=== PATIENT | female | born 1965 | race Caucasian/White ===

== ENCOUNTER 2020-11-24 05:34 | Emergency (ER) | payer MEDICAID, SELFPAY ==
--- NOTE | 2020-11-24 | ECG_ITS ---
Test Reason : CHEST PAIN Blood Pressure : / mmHG Vent. Rate : 069 BPM Atrial Rate : 069 BPM P-R Int : 150 ms QRS Dur : 084 ms QT Int : 432 ms P-R-T Axes : 053 012 043 degrees QTc Int : 462 ms Normal sinus rhythm Prolonged QT Abnormal ECG When compared with ECG of 24-NOV-2020 06:02, Nonspecific T wave abnormality is no longer Present Referred By: Sachin Arias Electronically Signed By:BRIDGET ISLAS
--- NOTE | ~2020-11-24 | XR_ITS ---
EXAMINATION: XR CHEST CLINICAL INFORMATION: Chest pain COMPARISON: 12/28/2013 TECHNIQUE: Frontal view of the chest was obtained. FINDINGS: Cardiac leads overlie the chest. The lungs are well expanded. There is no focal consolidation, edema, or effusion. No pneumothorax. The cardiomediastinal silhouette is within normal limits. No acute osseous abnormality. XR/XR chest 1V IMPRESSION: Clear lungs.
[2020-11-24 05:42] VITALS: BP 115/68; PULSE 72; RESP 16; TEMP 36.7; O2SAT 94; BMI 35.3
--- NOTE | 2020-11-24 05:50 | ECG_ITS ---
Test Reason : CHEST PAIN Blood Pressure : / mmHG Vent. Rate : 074 BPM Atrial Rate : 074 BPM P-R Int : 152 ms QRS Dur : 090 ms QT Int : 434 ms P-R-T Axes : 055 020 070 degrees QTc Int : 481 ms Normal sinus rhythm Nonspecific T wave abnormality Abnormal ECG When compared with ECG of 12-OCT-2008 12:52, Nonspecific T wave abnormality is now Present Referred By: Generic ED Physician Electronically Signed By:BRIDGET ISLAS
[2020-11-24 06:22] LABS: MANUAL DIFF FLAG NO
[2020-11-24 06:24] LABS: Basophils Absolute Auto 0.1 X10*3/uL (0.0-0.2); Basophils Percent Auto 0.7 % (0-2); Eosinophils Absolute Auto 0.2 X10*3/uL (0.0-0.4); Hemoglobin 14.2 g/dl (12.0-16.0); Imm Gran Abs Auto 0.06 X10*3/uL (0.00-0.03); Imm Gran Pct Auto 0.6 % (0.0-0.4); Lymphocytes Absolute Auto 3.1 X10*3/uL (1.2-4.9); Lymphocytes Percent Auto 28.7 % (20-40); Mean Corpuscular HGB Conc 33.8 g/dl (31.0-35.0); Mean Corpuscular Hemoglobin 29.5 pg (27.0-33.0); Mean Corpuscular Volume 87.1 fL (80-98); Mean Platelet Volume 11.3 fL (9.4-12.3); Monocytes Absolute Auto 0.7 X10*3/uL (0.1-1.2); Monocytes Percent Auto 6.8 % (2-11); Neutrophils Absolute Auto 6.6 X10*3/uL (2.0-8.3); Neutrophils Percent Auto 61.2 % (45-73); Platelet Count 259 X10*3/uL (160-400); Red Blood Count 4.82 X10*6/uL (4.20-5.50); Red Cell Distribution Width 15.3 % (11.0-16.0); White Blood Count 10.9 X10*3/uL (4.8-10.8)
[2020-11-24 06:48] LABS: Anion Gap 15 (12-20); Blood Urea Nitrogen 17 mg/dL (9-16); Calcium 8.5 mg/dL (8.4-10.2); Carbon Dioxide 21 mmol/L (22-29); Chloride 104 mmol/L (96-108); Creatinine Clr Calc Pharmacy 79.6; Estimated Glomerular Filt Rate > 60; Glucose Random 127 mg/dL (60-115); Potassium 3.8 mmol/L (3.3-5.1); Sodium 136 mmol/L (135-145)
--- NOTE | 2020-11-24 06:52 | ED_ITS ---
HPI - Chest Pain General Chief Complaint: Chest Pain Stated Complaint: chest pressure Time Seen by Provider: 11/24/20 06:52 History of Present Illness HPI narrative: Patient with no known coronary disease with history of hypertension woke up at 04:00 from sleep with chest pressure-like symptoms radiate to the bilateral shoulder with nausea vomiting small amount with diaphoresis. Chest pain lasted for about half an hour so on arrival patient in having much chest pain almost subsided. Patient allergic to aspirin EKG done showed no acute ST elevation. High sensitive troponin was 13.3 when examined. Patient denies any shortness of breath no calf tenderness never had similar pain in the past patient had stress test remotely in the past Related Data Allergies Allergy/AdvReac Type Severity Reaction Status Date / Time cefepime [CEFEPIME] Allergy Mild RASH Unverified 12/23/19 16:43 aspirin [ASPIRIN] Allergy Unknown HIVES Unverified 12/23/19 16:43 Review of Systems Review of Systems: Constitutional : No Weight loss, No Fever, No Chills ENT/Mouth : No sore throat, No Rhinorrhea Eyes: No Eye Pain, No Swelling Cardiovascular : + Chest Pain, no palpitations Respiratory : No Cough, No Sputum, no shortness of breath Gastrointestinal : + Nausea, + Vomiting, No Diarrhea, No abdominal Pain, no black stools Genitourinary : No Dysuria, No Urinary Frequency Musculoskeletal : No joint pain, No Myalgias, No Joint Swelling Skin : No Skin Lesions, No rash Neuro : No Weakness, No Numbness, No Dizziness, No Headache Psych : No Anxiety/Panic, No Depression Heme/Lymph: No Bruising, No Lymphadenopathy Endocrine : No Polyuria, No Polydipsia All other systems reviewed and are negative [facility] Past Medical History Medical History Hypertension Social History Social History Patient Tobacco Use Status: Current everyday Tobacco user Use of substances other than those prescribed or required for medical reasons: No Advance Directives: No Advance Directives Information Provided: No Patient : No Physical Exam Vital Signs: Vital Signs: Last Vital Signs Temp 98.5 F 11/24/20 12:32 Pulse 61 11/24/20 12:32 Resp 17 11/24/20 12:32 BP 128/78 11/24/20 12:32 Pulse Ox 96 11/24/20 12:32 Body Mass Index 35.3 Appearance: Alert. Oriented X3. No acute distress. Eyes: No pallor /icterus ENT: Pharynx normal. Oral Mucosa moist Neck: Normal inspection. Neck supple. CVS: Normal heart rate and rhythm. Pulses normal. Respiratory: No respiratory distress. Equal air entry bilateral, no wheezing/rales/rhonchi Abdomen: Soft and nontender. Bowel sounds are present, no mass palpable, no CVA tenderness Skin: Skin warm and dry. Normal skin color. Normal skin turgor. Extremities: No lower extremity edema. No calf tenderness Neuro: Oriented X 3. No motor deficit. Course Course Course Narrative: Patient has stable vitals on heparin drip denies any chest pain awaiting for transfer to [facility] for cardiac catheterization. Repeat troponin Was further elevated to 71.2.. Patient sign of Dr. Amaya pending transfer to [facility] MDM - Chest Pain MDM Narrative Medical decision making narrative: Patient with typical cardiac chest pain symptoms lasted for 45 minutes without any acute ST elevation initial high sensitive troponin was 13.3 repeat in 2 hours 47.4 repeat EKG also without any significant change. Patient's symptoms clinically cardiac allergic to aspirin with hives and swelling of the lips was given 300 mg of Plavix p.o. started on heparin drip seen by manager credit collections Dr. Campos planning to transfer to [facility] for possible angio. No chest pain after arrival in the ER. Lab Data Attestation: I reviewed the patient's lab results. Result diagrams: 11/24/20 06:12 11/24/20 06:12 Labs: Lab Results 11/24/20 11/24/20 11/24/20 Range/Units 06:12 06:12 06:12 WBC 10.9 H (4.8-10.8) X10*3/uL RBC 4.82 (4.20-5.50) X10*6/uL Hgb 14.2 (12.0-16.0) g/dl Hct 42.0 (37-47) % MCV 87.1 (80-98) fL MCH 29.5 (27.0-33.0) pg MCHC 33.8 (31.0-35.0) g/dl RDW 15.3 (11.0-16.0) % Plt Count 259 (160-400) X10*3/uL MPV 11.3 (9.4-12.3) fL Immature Gran % (Auto) 0.6 H (0.0-0.4) % Neut % (Auto) 61.2 (45-73) % Lymph % (Auto) 28.7 (20-40) % [place] % (Auto) 6.8 (2-11) % Eos % (Auto) 2.0 (0-4) % Baso % (Auto) 0.7 (0-2) % Lymph # (Auto) 3.1 (1.2-4.9) X10*3/uL [place] # (Auto) 0.7 (0.1-1.2) X10*3/uL Eos # (Auto) 0.2 (0.0-0.4) X10*3/uL Baso # (Auto) 0.1 (0.0-0.2) X10*3/uL Abs Immat Gran (auto) 0.06 H (0.00-0.03) X10*3/uL Absolute Neuts (auto) 6.6 (2.0-8.3) X10*3/uL Absolute Nucleated RBC 0.000 (0.0-0.012) X10*3/uL Nucleated RBC % (auto) 0.0 (0.0-0.2) /100WBC PT INR APTT (24.1-38.0) SEC Sodium 136 (135-145) mmol/L Potassium 3.8 (3.3-5.1) mmol/L Chloride 104 (96-108) mmol/L Carbon Dioxide 21 L (22-29) mmol/L Anion Gap 15 (12-20) BUN 17 H (9-16) mg/dL Creatinine 0.96 (0.5-1.4) mg/dL Estim Creat Clear Calc 79.6 Estimated GFR > 60 Random Glucose 127 H (60-115) mg/dL Calcium 8.5 (8.4-10.2) mg/dL Troponin I High Sens 13.3 (<3.5-17.0) ng/L COVID-19 ([facility]ACE) (Negative) COVID-19 Clin Com 11/24/20 11/24/20 11/24/20 Range/Units 08:05 09:49 09:49 WBC (4.8-10.8) X10*3/uL RBC (4.20-5.50) X10*6/uL Hgb (12.0-16.0) g/dl Hct (37-47) % MCV (80-98) fL MCH (27.0-33.0) pg MCHC (31.0-35.0) g/dl RDW (11.0-16.0) % Plt Count (160-400) X10*3/uL MPV (9.4-12.3) fL Immature Gran % (Auto) (0.0-0.4) % Neut % (Auto) (45-73) % Lymph % (Auto) (20-40) % [place] % (Auto) (2-11) % Eos % (Auto) (0-4) % Baso % (Auto) (0-2) % Lymph # (Auto) (1.2-4.9) X10*3/uL [place] # (Auto) (0.1-1.2) X10*3/uL Eos # (Auto) (0.0-0.4) X10*3/uL Baso # (Auto) (0.0-0.2) X10*3/uL Abs Immat Gran (auto) (0.00-0.03) X10*3/uL Absolute Neuts (auto) (2.0-8.3) X10*3/uL Absolute Nucleated RBC (0.0-0.012) X10*3/uL Nucleated RBC % (auto) (0.0-0.2) /100WBC PT Cancelled 11.0 INR Cancelled 1.0 APTT 31.6 (24.1-38.0) SEC Sodium (135-145) mmol/L Potassium (3.3-5.1) mmol/L Chloride (96-108) mmol/L Carbon Dioxide (22-29) mmol/L Anion Gap (12-20) BUN (9-16) mg/dL Creatinine (0.5-1.4) mg/dL Estim Creat Clear Calc Estimated GFR Random Glucose (60-115) mg/dL Calcium (8.4-10.2) mg/dL Troponin I High Sens 47.4 H* D (<3.5-17.0) ng/L COVID-19 (K[facility]ACE) (Negative) COVID-19 Clin Com 11/24/20 11/24/20 11/24/20 Range/Units 10:15 13:25 13:25 WBC (4.8-10.8) X10*3/uL RBC (4.20-5.50) X10*6/uL Hgb (12.0-16.0) g/dl Hct (37-47) % MCV (80-98) fL MCH (27.0-33.0) pg MCHC (31.0-35.0) g/dl RDW (11.0-16.0) % Plt Count (160-400) X10*3/uL MPV (9.4-12.3) fL Immature Gran % (Auto) (0.0-0.4) % Neut % (Auto) (45-73) % Lymph % (Auto) (20-40) % [place] % (Auto) (2-11) % Eos % (Auto) (0-4) % Baso % (Auto) (0-2) % Lymph # (Auto) (1.2-4.9) X10*3/uL [place] # (Auto) (0.1-1.2) X10*3/uL Eos # (Auto) (0.0-0.4) X10*3/uL Baso # (Auto) (0.0-0.2) X10*3/uL Abs Immat Gran (auto) (0.00-0.03) X10*3/uL Absolute Neuts (auto) (2.0-8.3) X10*3/uL Absolute Nucleated RBC (0.0-0.012) X10*3/uL Nucleated RBC % (auto) (0.0-0.2) /100WBC PT INR APTT 140.7 H* D (24.1-38.0) SEC Sodium (135-145) mmol/L Potassium (3.3-5.1) mmol/L Chloride (96-108) mmol/L Carbon Dioxide (22-29) mmol/L Anion Gap (12-20) BUN (9-16) mg/dL Creatinine (0.5-1.4) mg/dL Estim Creat Clear Calc Estimated GFR Random Glucose (60-115) mg/dL Calcium (8.4-10.2) mg/dL Troponin I High Sens 71.2 H* D (<3.5-17.0) ng/L COVID-19 (KANDACE) Negative (Negative) COVID-19 Clin Com See Note ECG Data ECG #1: Attestation: I personally reviewed and interpreted this ECG as follows: Interpretation: Normal sinus rhythm 74 beats per minute normal intervals normal axis no acute ST wave changes T inversion in inferior lateral leads nonspecific Critical Care Time Critical Care Time Critical Care Time: Yes Total Critical Care Time: 45 Attestation: I spent 45 minutes of critical care, with interventions, assessments, speaking to patient and consultants Discharge Plan Discharge Clinical Impression: Acute non-ST elevation myocardial infarction (NSTEMI)
[2020-11-24 06:53] LABS: Troponin-I High Sensitivity 13.3 ng/L (<3.5-17.0)
[2020-11-24] MEDS: Nitroglycerin 2 % Oint 1 GM Packet 0.5 INCH TRANSDERMA (08:00)
[2020-11-24] MEDS: Clopidogrel Bisulfate 300 MG TABLET PO (08:00)
[2020-11-24 08:09] VITALS: BP 133/82; PULSE 70; RESP 18; O2SAT 98
--- NOTE | 2020-11-24 08:15 | PC.NURSE ---
Pt alert and oriented x3, b/p 133/82, HR 70. no c/o chest pain, no sob/difficulty breathing, no headache/dizziness, no numbness/tingling. Pt up to restroom without difficulty. Pt's Troponin at [address] Arias aware. Repeat Troponin result pending. Pt resting quietly.
[2020-11-24 09:03] LABS: Troponin-I High Sensitivity 47.4 ng/L (<3.5-17.0)
--- NOTE | 2020-11-24 09:46 | PM.CNCAR ---
History of Present Illness History of Present Illness Date of Service: 11/24/20 Requesting physician: Sachin Arias Chief complaint: chest pressure Narrative: I was requested to see Pili in cardiology consultation today for acute coronary syndrome. Patient is a pleasant 55-year-old woman with prior history of hypertension woke up this morning around 04:00 with severe retrosternal chest pressure radiating to both her shoulders associated with nausea and cold sweats. She said this is the worst pain she had ever had. She also felt like she had to have a bowel movement and went to the toilet. Symptoms continued to persist and then her called her daughter will call 911. By the time 911 arrived at her home she has her pain was easing up. IV was placed and she was brought to the emergency room. In the emergency room initial EKG was non remarkable, subsequent EKG shows nonspecific anterior ST T wave changes. Her initial troponin was 30 and subsequently increased to 44 consistent with a good delta. Patient has no current chest pain. Has remained hemodynamically stable. She has never had symptoms like this before. She has prior history of hypertension and maybe border hyperlipidemia. Her blood pressure recently has not been well controlled with the change in medications as per her. Review of Systems Constitutional: Constitutional: Reports no additional constitutional complaints Eyes: Eyes: Reports no additional eye complaints ENT: Reports system reviewed and no additional complaints, except as documented Cardiovascular: Cardiovascular: Reports chest pain at rest, Reports diaphoresis, Denies lightheadedness, Denies Loss of Consciousness and Denies dyspnea Respiratory: Respiratory: Reports no additional respiratory complaints and Denies dyspnea Gastrointestinal: Gastrointestinal: Reports nausea Genitourinary: Genitourinary: Reports no additional female genitourinary complaints Musculoskeletal: Musculoskeletal: Reports no additional musculoskeletal complaints Integumentary/Breasts: Skin/Breast: Reports system reviewed and no additional complaints, except as docu Neurologic: Reports system reviewed and no additional complaints, except as documented Psychiatric: Psychiatric: Reports no additional psychiatric complaints Endocrine: Endocrine: Reports no additional endocrine complaints Hematologic/Lymphatic: Hematologic/Lymphatic: Reports no additional hematologic/lymphatic complaints Allergic/Immunologic: Allergic/Immunologic: Reports no additional allergic/immunologic complaints [facility] Past Medical History Medical History Hypertension Social History Social History Advance Directives: No Advance Directives Information Provided: No Patient : No Meds Allergies Allergy/AdvReac Type Severity Reaction Status Date / Time cefepime [CEFEPIME] Allergy Mild RASH Unverified 12/23/19 16:43 aspirin [ASPIRIN] Allergy Unknown HIVES Unverified 12/23/19 16:43 Active Medications: Current Medications Generic Name Dose Route Start Last Admin Trade Name Freq PRN Reason Stop Dose Admin Heparin Sodium/Sodium Chloride 25,000 unit in 250 mls @ 0 mls/hr 11/24/20 09:15 IVCONT .Q0M COUNTS INCLUDE 234 BEDS AT THE [facility] Protocol Per Protocol Physical Exam Vital Signs: Vital Signs: Last Vital Signs Temp 98.0 F 11/24/20 05:42 Pulse 70 11/24/20 08:09 Resp 18 11/24/20 08:09 BP 133/82 11/24/20 08:09 Pulse Ox 98 11/24/20 08:09 Body Mass Index 35.3 Const: General: cooperative, comfortable, no acute distress, alert and awake Nutritional Appearance: obese Orientation/consciousness: patient oriented x3 Limitations: no limitations HENMT: Head: Yes normocephalic and Yes atraumatic Neck: Neck: Yes trachea midline, Yes supple and Yes no JVD Carotids: no bruits Resp: Effort & Inspection: normal respiratory effort Auscultation: clear to auscultation bilaterally Cardio: Jugular venous distension: no JVD Palpation: normal PMI Rate: regular rate Rhythm: regular rhythm Heart sounds: S1 normal heart sound present, S2 normal heart sound present, no click, no gallops, no murmurs and no rubs Peripheral pulses: Peripheral pulses 2+ throughout GI: Auscultation: normal bowel sounds Skin: General skin exam: no rashes or lesions noted Neuro: General: patient oriented x3 and no focal motor deficits Extrem: General: Yes no clubbing, cyanosis or edema Psych: Appearance: grossly normal Results Labs and Meds Result diagrams: 11/24/20 06:12 11/24/20 06:12 Lab results: Laboratory Results - last 24 hr 11/24/20 11/24/20 11/24/20 06:12 06:12 06:12 WBC 10.9 H RBC 4.82 Hgb 14.2 Hct 42.0 MCV 87.1 MCH 29.5 MCHC 33.8 RDW 15.3 Plt Count 259 MPV 11.3 Immature Gran % (Auto) 0.6 H Neut % (Auto) 61.2 Lymph % (Auto) 28.7 [place] % (Auto) 6.8 Eos % (Auto) 2.0 Baso % (Auto) 0.7 Lymph # (Auto) 3.1 [place] # (Auto) 0.7 Eos # (Auto) 0.2 Baso # (Auto) 0.1 Abs Immat Gran (auto) 0.06 H Absolute Neuts (auto) 6.6 Absolute Nucleated RBC 0.000 Nucleated RBC % (auto) 0.0 Sodium 136 Potassium 3.8 Chloride 104 Carbon Dioxide 21 L Anion Gap 15 BUN 17 H Creatinine 0.96 Estim Creat Clear Calc 79.6 Estimated GFR > 60 Random Glucose 127 H Calcium 8.5 Troponin I High Sens 13.3 11/24/20 08:05 WBC RBC Hgb Hct MCV MCH MCHC RDW Plt Count MPV Immature Gran % (Auto) Neut % (Auto) Lymph % (Auto) [place] % (Auto) Eos % (Auto) Baso % (Auto) Lymph # (Auto) [place] # (Auto) Eos # (Auto) Baso # (Auto) Abs Immat Gran (auto) Absolute Neuts (auto) Absolute Nucleated RBC Nucleated RBC % (auto) Sodium Potassium Chloride Carbon Dioxide Anion Gap BUN Creatinine Estim Creat Clear Calc Estimated GFR Random Glucose Calcium Troponin I High Sens 47.4 H* D EKG 1. Shows normal sinus rhythm with minimal T-wave flattening. EKG 2. Shows nonspecific anterior T-wave changes Imaging Radiologist's impression: Impressions Chest X-Ray 11/24/20 05:50 IMPRESSION: Clear lungs. Assessment and Plan (1) Acute coronary syndrome: Status: Acute Patient present with typical symptoms of acute coronary syndrome associated EKG changes as well as positive are troponin delta consistent with high risk acute coronary syndrome with risk factors of hypertension, obesity and family history. Patient has aspirin allergy and was appropriately loaded with Plavix 300 mg P will continue Plavix 75 mg daily. Start on IV heparin for acute coronary syndrome. Start on Lopressor 25 mg q.12 hours and statins Lipitor 80 mg daily. Patient has severe aspirin allergy with hives and facial swelling. Requires cardiac catheterization and prior to that should require aspirin desensitization protocol. This will be performed at [facility] in the CCU prior to cardiac catheterization. Discussed case with Dr. Gonzalez and will plan desensitization protocol. Patient will be transferred to telemetry floor at [facility]. Management was discussed with patient. Risks, benefits, alternate 2nd open to cardiac catheterization were discussed with her. She is agreeable. Will follow with the patient as outpatient Procedures Date of Service Date of Service: 11/24/20
[2020-11-24] MEDS: Heparin Sodium,Porcine 5,000 UNIT/ML VIAL 5000 UNIT IVPUSH (09:51)
[2020-11-24] MEDS: Heparin Sodium,Porcine/1/2NS 25,000 UNIT/250 ML IV.SOLN 13.91 UNIT IVCONT (10:06)
[2020-11-24 10:23] LABS: Partial Thromboplastin Time 31.6 SEC (24.1-38.0)
[2020-11-24 10:28] VITALS: BP 134/76; PULSE 65
[2020-11-24] MEDS: Metoprolol Tartrate 25 MG TABLET PO (10:28)
[2020-11-24] MEDS: Atorvastatin Calcium 80 MG TABLET PO (10:30)
[2020-11-24 10:34] VITALS: BP 134/76; PULSE 63; RESP 12; O2SAT 98
[2020-11-24 10:52] LABS: COVID-19 Test Negative (Negative); IDNOW Serial# 08D9AD1C
[2020-11-24 12:32] VITALS: BP 128/78; PULSE 61; RESP 17; TEMP 36.9; O2SAT 96
[2020-11-24 14:00] LABS: Troponin-I High Sensitivity 71.2 ng/L (<3.5-17.0)
[2020-11-24 14:02] LABS: Partial Thromboplastin Time 140.7 SEC (24.1-38.0)
--- NOTE | 2020-11-24 17:04 | PC.NURSE ---
pt accepted [facility] m5 bed 127 nurse - nurse [phone]
[2020-11-24 17:05] LABS: Partial Thromboplastin Time 151.6 SEC (24.1-38.0)
== END 2020-11-24 17:30 ==
PROVIDERS: Emergency Provider Internal Medicine; PCP Family Medicine
DX: I21.4 Non-ST elevation (NSTEMI) myocardial infarction (principal); R07.89 Other chest pain; I10 Essential (primary) hypertension; Z20.822 Contact with and (suspected) exposure to COVID-19; R11.2 Nausea with vomiting, unspecified; F17.210 Nicotine dependence, cigarettes, uncomplicated
CPT/HCPCS: 36415; 71045; 80048; 84484; 85025; 85610; 85730; 87635; 93005; 96365; 96366; 96375; 99284; 99291

== ENCOUNTER → 2020-12-13 14:33 | Outpatient (BNVA) | payer MEDICAID, SELFPAY | PROVIDERS: PCP Family Medicine; Referring Provider Internal Medicine; Visit Provider Nurse Practitioner Family | DX: I24.9 Acute ischemic heart disease, unspecified (principal); I25.10 Atherosclerotic heart disease of native coronary artery without angina pectoris; I10 Essential (primary) hypertension; E78.5 Hyperlipidemia, unspecified; R77.8 Other specified abnormalities of plasma proteins; R53.83 Other fatigue; F41.9 Anxiety disorder, unspecified; Z98.890 Other specified postprocedural states; Z72.0 Tobacco use; Z88.6 Allergy status to analgesic agent; Z88.1 Allergy status to other antibiotic agents; Z79.899 Other long term (current) drug therapy | CPT/HCPCS: 99212 ==

== ENCOUNTER 2021-01-23 10:51 | Outpatient (REF) | payer MEDICAID, SELFPAY ==
--- NOTE | ~2021-01-23 | MM_ITS ---
EXAMINATION: MM SCREENING DIGITAL BREAST TOMOSYNTHESIS, BILATERAL CLINICAL INFORMATION: Screening. Asymptomatic. The lifetime risk of breast cancer based on the Tyrer-Cuzick Model is 15%. COMPARISON: Mammography: 03/29/2011 TECHNIQUE: Digital breast tomosynthesis is performed in both the craniocaudal and mediolateral oblique views along with computer-aided detection (CAD). Synthesized 2D images are generated from the tomosynthesis. Additional bilateral MLO views are provided. FINDINGS: There are scattered areas of fibroglandular density (ACR BI-RADS breast composition Category b). There are no significant masses, abnormal calcifications, or other abnormalities. There are benign scattered round and rim and some dermal calcifications. The axilla and skin contours are unremarkable. No significant changes. MM/MM tomosynthesis screening BI IMPRESSION: No mammographic evidence of malignancy. ASSESSMENT: BI-RADS 2: Benign RECOMMENDATION: Routine annual mammography screening. This patient's information was entered into a reminder system with a target due date for their next mammogram.
== END 2021-01-23 10:52 | disposition home or self-care (01) ==
LOC: HO.MAMMO 10:51
PROVIDERS: Visit Provider Family Medicine
DX: Z12.31 Encounter for screening mammogram for malignant neoplasm of breast (principal)
CPT/HCPCS: 77063; 77067

== ENCOUNTER → 2021-02-09 12:57 | Outpatient (BNVA) | payer MEDICAID, SELFPAY | PROVIDERS: PCP Internal Medicine; Referring Provider Family Medicine; Visit Provider Nurse Practitioner | DX: Z83.71 Family history of colonic polyps (principal) | CPT/HCPCS: 99212 ==

== ENCOUNTER 2021-02-28 11:00 | Outpatient (RCR) | payer MEDICAID, SELFPAY ==
[2021-02-07 10:58] VITALS: BP 145/79; PULSE 63
== END 2021-03-13 16:52 | disposition home or self-care (01) ==
LOC: HO.PT 11:00
PROVIDERS: PCP Internal Medicine; Visit Provider Family Medicine
DX: M53.3 Sacrococcygeal disorders, not elsewhere classified (principal)
CPT/HCPCS: 97110; 97162

== ENCOUNTER → 2021-03-20 12:44 | Outpatient (BNVA) | payer MEDICAID, SELFPAY | PROVIDERS: PCP Internal Medicine; Referring Provider Internal Medicine; Visit Provider Nurse Practitioner Family | DX: I25.10 Atherosclerotic heart disease of native coronary artery without angina pectoris (principal); I10 Essential (primary) hypertension; E78.5 Hyperlipidemia, unspecified; Z98.890 Other specified postprocedural states | CPT/HCPCS: 93005; 99212 ==

== ENCOUNTER → 2021-09-12 09:44 | Outpatient (BNVA) | payer MEDICAID, SELFPAY | PROVIDERS: PCP Internal Medicine; Referring Provider Internal Medicine; Visit Provider Internal Medicine Cardiovascular Disease | DX: I25.10 Atherosclerotic heart disease of native coronary artery without angina pectoris (principal); I10 Essential (primary) hypertension; K21.9 Gastro-esophageal reflux disease without esophagitis; Z79.82 Long term (current) use of aspirin; Z79.899 Other long term (current) drug therapy | CPT/HCPCS: 99212 ==

== ENCOUNTER → 2022-03-14 10:10 | Outpatient (BNVA) | payer MEDICAID, SELFPAY | PROVIDERS: PCP Internal Medicine; Referring Provider Internal Medicine; Visit Provider Internal Medicine Cardiovascular Disease | DX: I25.10 Atherosclerotic heart disease of native coronary artery without angina pectoris (principal); I10 Essential (primary) hypertension; E78.5 Hyperlipidemia, unspecified; F17.210 Nicotine dependence, cigarettes, uncomplicated; Z98.890 Other specified postprocedural states; Z79.899 Other long term (current) drug therapy | CPT/HCPCS: 93005; 99212 ==

== ENCOUNTER 2022-06-11 08:27 | Outpatient (REF) | payer MEDICAID, SELFPAY ==
--- NOTE | ~2022-06-11 | MM_ITS ---
EXAMINATION: MM SCREENING DIGITAL BREAST TOMOSYNTHESIS, BILATERAL CLINICAL INFORMATION: Screening. Asymptomatic. The lifetime risk of breast cancer based on the Tyrer-Cuzick Model is 8%. COMPARISON: Mammography: 01/23/2021, 03/29/2011 TECHNIQUE: Digital breast tomosynthesis is performed in both the craniocaudal and mediolateral oblique views along with computer-aided detection (CAD). Synthesized 2D images are generated from the tomosynthesis. Additional left MLO view is provided. FINDINGS: There are scattered areas of fibroglandular density (ACR BI-RADS breast composition Category b). There are no significant masses, abnormal calcifications, or other abnormalities. Breast tissue composition borders on predominantly fatty. Background stromal and fibroglandular densities are similar to prior studies. No developing density or architectural abnormality. There are scattered bilateral benign round, rim, and dermal calcifications again seen. Small dermal lesion again noted overlying the posterior outer left breast and posterior central right breast. No significant changes. MM/MM tomosynthesis screening BI IMPRESSION: No mammographic evidence of malignancy. ASSESSMENT: BI-RADS 2: Benign RECOMMENDATION: Routine annual mammography screening. This patient's information was entered into a reminder system with a target due date for their next mammogram.
== END 2022-06-11 08:28 | disposition home or self-care (01) ==
LOC: HO.MAMMO 08:27
PROVIDERS: PCP Family Medicine; Visit Provider Family Medicine
DX: Z12.31 Encounter for screening mammogram for malignant neoplasm of breast (principal)
CPT/HCPCS: 77063; 77067

== ENCOUNTER 2022-08-30 10:15 | Outpatient (REF) | payer MEDICAID, SELFPAY ==
--- NOTE | ~2022-08-30 | US_ITS ---
EXAMINATION: US ABDOMEN COMPLETE CLINICAL INFORMATION: Right upper quadrant pain. COMPARISON: CT abdomen and pelvis 06/13/2014. TECHNIQUE: Real-time imaging of the abdominal viscera. FINDINGS: PANCREAS: Normal. ABDOMINAL AORTA: The proximal, mid, and distal segments are normal in caliber. INFERIOR VENA CAVA: Visualized portions are normal. LIVER: There is a longitudinal span of 19.0 cm The liver contour is normal. There is diffuse increased liver parenchymal echogenicity, with pericholecystic sparing. Within the left hepatic lobe, a 5 mm benign, simple cyst is seen, with increased through sound transmission. This requires no imaging follow-up. There is no intrahepatic biliary duct dilatation seen. GALLBLADDER: Normal. The gallbladder is physiologically distended without evidence of stones, sludge, polyps, wall thickening or pericholecystic fluid. COMMON BILE DUCT: Normal in caliber measuring 0.3 cm in diameter. RIGHT KIDNEY: Normal. No hydronephrosis. No renal calculi or focal parenchymal lesions. The kidney measures 11.4 cm in maximum dimension. LEFT KIDNEY: A 1.5 cm benign, simple left parapelvic cyst is seen. This requires no imaging follow-up. No hydronephrosis or renal calculi. The kidney measures 10.0 cm in maximum dimension. SPLEEN: Normal. The spleen measures 8.9 cm in maximum dimension. FREE FLUID: None. US/US abdomen complete IMPRESSION: 1. There is mild hepatomegaly. 2. There is generalized increase in hepatic echotexture, consistent with fatty infiltration or hepatocellular disease. Please correlate clinically. No focal hepatic mass or intrahepatic biliary dilatation is seen. 3. Simple, benign hepatic and left renal cysts are noted, for which no imaging follow-up is recommended.
== END 2022-08-30 10:16 | disposition home or self-care (01) ==
LOC: HO.US 10:15
PROVIDERS: PCP Family Medicine; Visit Provider Family Medicine
DX: R10.11 Right upper quadrant pain (principal)
CPT/HCPCS: 76700

== ENCOUNTER 2023-03-05 09:55 | Outpatient (REF) | payer MEDICAID, SELFPAY | END 2023-03-05 09:56 | disposition home or self-care (01) | LOC: HO.LNP 09:55 | PROVIDERS: PCP Family Medicine; Visit Provider Obstetrics & Gynecology | DX: N90.89 Other specified noninflammatory disorders of vulva and perineum (principal) | CPT/HCPCS: 56605; 88305; 88312 ==

== ENCOUNTER 2023-03-05 09:55 | Outpatient (AMB) | payer MEDICAID, SELFPAY ==
[2023-03-05 10:00] VITALS: BP 136/86; BMI 36.5
--- NOTE | 2023-03-05 10:00 | A.OFFVIS_ITS ---
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 The patient had the vulvar growth in January of 2015 which was excited pathology showed benign fibroepithelial lesion with no evidence of malignancy. Since then it has recurred and has been growing steadily. No other concerns. [facility] Medical History Coronary artery disease Hypertension Surgical History Hx of tubal ligation S/P cardiac cath History of cardiac cath History of colonoscopy History of eyelid surgery History of cataract surgery History of 2 sections Family History Father Prostate cancer Mother No problems noted. Paternal Aunt Breast cancer Family/Other Breast cancer Social History Alcohol intake: never Patient Tobacco Use Status: Current everyday Tobacco user Cigarettes Per Day: 4 Years Smoked: 30 +/- Patient : No Female Reproductive History Menstrual Age of Menarche: 14 control method: permanent sterilization Total pregnancies: 5 Full term: 2 Number of Living Children: 2 Ab spontaneous: 3 Date of last pap smear: 01/02/15 (negative) Date of Mammogram: 06/11/22 Review of Systems Const All systems reviewed & are unremarkable except as noted in HPI and below Physical Exam Vital Signs: Last Vital Signs BP 136/86 03/05/23 10:00 BMI result Body Mass Index 36.5 General: Yes no CVA tenderness External Female Exam: normal appearance of the urethra and other (Right posterior fourchette 1.5 cm long lesion) Speculum Exam - Vagina: normal appearance of the vagina, normal palpation, no lesions and no masses Speculum Exam - Cervix: normal appearance of the cervix, normal palpation, no lesions, no masses and nontender Bimanual exam- vagina & uterus: normal bimanual exam, normal palpation, uterine size normal, normal palpation, uterine shape normal, No Cervical tenderness pres ent and non-tender Bimanual Exam- Adnexa, other: normal adnexae Back/Spine/Pelvis Back: no CVA tenderness Office Procedures 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 Preop dx: Right posterior fourchette lesion Op: Right posterior fourchette lesion excision Post op: Same Anesthesia: Lidocaine 1% 3cc used Procedure: Using betadine the area was scrubbed and draped in the usual manner. 3 cc of lidocaine was used for anesthesia at theRight posterior fourchette lesion area ; using scissors and pickup the left vulvar lesion was excised, Vicryl was used to approximate the edges. Pressure was used for hemostasis. The patient tolerated the procedure well. Discharge Instructions: The patient was instructed to schedule an appointment in 2 weeks for follow-up and to call if temp>100.4, area of the biopsy redness or pain, nausea/vomiting. This note was generated with a voice recognition program. Some errors may have been overlooked during the review of this note. Sometimes these errors may affect the content or meaning of a given sentence. 91610-[place]vaire of Vulva/Perineum Procedure code (CPT) selection complete Assessment & Plan Assessment & Plan (1) Vulvar lesion: Code(s): N90.89 - Other specified noninflammatory disorders of vulva and perineum Plan: Discussed with the patient the finding on physical exam showing a right posterior fourchette 1.5 cm long skin tag lesion, recommended excision. All questions answered, the patient verbalized understanding and agreed with the plan. See procedure note. Orders: Orders AMB FULL STACK DEVELOPER Biopsy Today N90.89 - Other specified noninflammatory disorders of vulva and perineum Coding Level of Care Code New Pt Level 3 (16083) Procedure Only Diagnoses Vulvar lesion N90.89 CPT Codes FULL STACK DEVELOPER Biopsy - CPT: 76971-Eoriax of Vulva/Perineum ([id number])
== END 2023-03-05 10:58 | disposition home or self-care (01) ==
PROVIDERS: PCP Family Medicine; Visit Provider Obstetrics & Gynecology
DX: N90.89 Other specified noninflammatory disorders of vulva and perineum (principal)
CPT/HCPCS: 56605

== ENCOUNTER 2023-03-18 09:04 | Outpatient (AMB) | payer MEDICAID, SELFPAY ==
[2023-03-18 09:15] VITALS: BP 132/84; PULSE 61; BMI 36.1
--- NOTE | 2023-03-18 09:15 | A.OFFVIS_ITS ---
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: No Allergies cefepime [CEFEPIME] Allergy (Mild, Verified 03/18/23 09:17) RASH Medication List - Last Reconciled 03/18/23 by Ludy Gonzalez, DIRECTOR OF MECHANICAL ENGINEERING-C aspirin 1 tab PO DAILY atorvastatin 80 mg PO BEDTIME bupropion HCl 150 mg PO DAILY cholecalciferol (vitamin D3) 100 mcg PO DAILY cyanocobalamin (vitamin B-12) 1,000 mcg PO DAILY epinephrine 0.3 mL IM ONCE PRN lisinopril 20 mg PO DAILY metoprolol succinate ER 12.5 mg (1/2 x 25 mg) PO DAILY omeprazole 20 mg PO DAILY 90 days tizanidine 2 mg PO HPI 1 year fu w/ ekg (NELLY) HPI Details Pili is a 57-year-old female past medical history of hypertension, smoking, nonobstructive CAD who presents for follow-up. Today she reports she has been feeling well with no concerning symptoms. She denies chest discomfort, shortness of breath, palpitations, edema. She reports good activity tolerance. No routine exercise. Taking meds as directed. Smoking up to 5 cigarettes daily. Has labs done at [facility]. [facility] Medical History Coronary artery disease Hypertension Surgical History Hx of tubal ligation S/P cardiac cath History of cardiac cath History of colonoscopy History of eyelid surgery History of cataract surgery History of 2 sections Family History Father Prostate cancer Mother No problems noted. Paternal Aunt Breast cancer Family/Other Breast cancer Social History Alcohol intake: never Patient Tobacco Use Status: Current everyday Tobacco user Cigarettes Per Day: 4 Years Smoked: 30 +/- Female Reproductive History Menstrual Age of Menarche: 14 Review of Systems Const All systems reviewed & are unremarkable except as noted in HPI and below ENT Denies dizziness Card Denies chest pain, Denies chest pain at rest, Denies chest pain with activity, Denies rapid heart rate, Denies pedal edema, Denies edema, Denies leg edema, Denies lightheadedness, Denies palpitations, Denies dyspnea, Denies dyspnea on exertion and Denies orthopnea Resp Denies cough, Denies dyspnea and Denies dyspnea on exertion GI Denies hematochezia and Denies change in stool character Musc Denies abnormal gait, Denies limited range of motion, Denies muscle cramps, Denies muscle weakness, Denies numbness, Denies radiating pain into limb, Denies stiffness and Denies tingling Neuro Denies abnormal gait, Denies dizziness, Denies numbness and Denies tingling Endo Denies palpitations Physical Exam Vital Signs: Last Vital Signs Pulse 61 03/18/23 09:15 BP 132/84 03/18/23 09:15 BMI result Body Mass Index 36.1 Const General: cooperative, healthy appearing, comfortable and no acute distress Orientation/consciousness: patient oriented x3 Neck Neck: Yes normal visual inspection Resp Effort & Inspection: normal respiratory effort Auscultation: clear to auscultation bilaterally, no crackles, no rales, no rhonchi and no wheezes Cardio Jugular venous distension: no JVD Rate: regular rate Rhythm: regular rhythm Heart sounds: S1 normal heart sound present, S2 normal heart sound present, no murmurs and no rubs Neuro General: patient oriented x3 Extrem General: Yes normal to inspection and No no pedal edema Psych Appearance: grossly normal Mental Status: mental status grossly normal Speech and movement: Normal speech and movement present Office Procedures EKG Details: Today, read by me, normal sinus rhythm, low-voltage QRS, rate 61, QTC 412 milliseconds [id number], Complete Assessment & Plan Assessment & Plan (1) Coronary artery disease: Code(s): I25.10 - Atherosclerotic heart disease of [place] coronary artery without angina pectoris Plan: Known history of nonobstructive coronary artery disease. No reports of anginal sounding symptoms. EKG done today showing sinus rhythm with no acute ST or T- wave abnormalities, rate 61. Cardiac risk factor modification reviewed with her. Continue aspirin indefinitely. Continue atorvastatin with ideal LDL goal less than 70. Continue with good blood pressure control, goal less than 130/85. No med changes made today. Signs and symptoms of angina reviewed with her. Cardiology follow-up in 1 year, sooner if needed. Emergency care if needed for symptoms. (2) S/P cardiac cath: Comment: 11/27/2020, left main minimal luminal irregularities, LAD and RCA mild diffuse disease, less than 30%, LCX mild luminal irregularities less than 30% Code(s): Z98.890 - Other specified postprocedural states (3) Hyperlipidemia: Code(s): E78.5 - Hyperlipidemia, unspecified Plan: [place] LDL goal less than 70. She is on high-dose atorvastatin. No recent lipid profile in our system. She tells me labs are done at [facility]. Will reach out to obtain most recent lipid profile (4) Hypertension: Code(s): I10 - Essential (primary) hypertension Qualifiers: Hypertension type: primary hypertension Qualified Code(s): I10 - Essential (primary) hypertension Plan: Controlled at present. No med changes made. Continues on lisinopril and metoprolol. Benefits of weight loss and increasing physical activity reviewed Plan Time spent on chart review, documentation, interview and assessment Coding Level of Care Code Est Pt Level 3 (47978) Diagnoses Coronary artery disease I25.10 S/P cardiac cath Z98.890 Hyperlipidemia E78.5 Primary hypertension I10 Hypertension type: primary hypertension CPT Codes EKG - CPT: 47358-[id number], Complete ([id number]) Time Spent (min) 24
== END 2023-03-18 09:37 | disposition home or self-care (01) ==
PROVIDERS: PCP Family Medicine; Visit Provider Nurse Practitioner Family
DX: I25.10 Atherosclerotic heart disease of native coronary artery without angina pectoris (principal); Z98.890 Other specified postprocedural states; E78.5 Hyperlipidemia, unspecified; I10 Essential (primary) hypertension
CPT/HCPCS: 93010; 99213

== ENCOUNTER → 2023-03-18 09:04 | Outpatient (BNVA) | payer MEDICAID, SELFPAY | PROVIDERS: PCP Family Medicine; Visit Provider Nurse Practitioner Family | DX: Z01.818 Encounter for other preprocedural examination (principal); I25.10 Atherosclerotic heart disease of native coronary artery without angina pectoris; I10 Essential (primary) hypertension; E78.5 Hyperlipidemia, unspecified; Z98.890 Other specified postprocedural states; Z83.719 Family history of colon polyps, unspecified | CPT/HCPCS: 93005; 99212 ==

== ENCOUNTER 2023-03-18 10:35 | Outpatient (AMB) | payer MEDICAID, SELFPAY ==
--- NOTE | 2023-03-18 10:53 | MHC.OFFVIS ---
Intake Vital Signs 03/18/23 11:07 Height 5 ft 6 in Weight 226 lb 3.108 oz BMI 36.5 BP 136/69 Blood Pressure Location Lt brachial Position Sitting Pulse 57 Intake Visit Reasons: colonoscopy screening Intake Note: Patient presents to in office visit today in follow up for colonoscopy screening. CC: Patient c/o constipation. Denies other GI symptoms today. 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 Srerano and in 2018 had a colonoscopy with only hyperplastic polyps. Apparently she has a family history of colon cancer. She has a relatively new history of coronary artery disease with an MD in 2021. PMX Hypertension High cholesterol Smoker Neck and low back pain Coronary artery disease with MD * SURGICAL HISTORY section x2 Cataract removal Eyelid reconstruction Cardiac stents * ALLERGIES Cefepime * Glipho LABS: Assessment & Plan (1) Family history of polyps in the colon: Comment: 2018 scope hyperplastic polyps only repeat 2022 Code(s): Z83.71 - Family history of colonic polyps Plan: 02/2021 NOTE BY MYSELF: The patient would technically not be due for recall until 2022 She has a FHX of polyps in her mother. I explained to her that somewhat must of miss read her call back information as she only needed to come back in 3 years if the polyps were edematous and in fact they were hyperplastic. She is actually happy about this because she recently had a heart attack and is undergoing quite a lot of workup in relation to this. She had a cardiac catheterization recently and of course is on medical treatment. She tells me she was working a lot of overtime in a [employer] facility and really ignoring the symptoms and not taking good care of herself. She has not had any other alarm symptoms such as weight loss severe rectal bleeding etc.. I will see her in 2 years and at that time we will do her repeat colonoscopy TODAY'S VISIT She is recovering well from her MD. However, she just lost another family member to COVID. She is agreeable to having her repeat scope scheduled. She will go to update her labs. She has intermittent CIC that resolved with prunes, prune juice and bisacodyl. She denies any respiratory problems and her cardiac conditions are stable. There are no prior problems with anesthesia or sedation. No ID problems. She has FHX of crc. [facility] Medical History Coronary artery disease Hypertension Surgical History Hx of tubal ligation S/P cardiac cath History of cardiac cath History of colonoscopy History of eyelid surgery History of cataract surgery History of 2 sections Family History Father Prostate cancer Mother No problems noted. Paternal Aunt Breast cancer Family/Other Breast cancer Social History Alcohol intake: never Patient Tobacco Use Status: Current everyday Tobacco user Cigarettes Per Day: 4 Years Smoked: 30 +/- Female Reproductive History Menstrual Age of Menarche: 14 Review of Systems Const Denies fatigue, Denies fever(s), Denies night sweats, Denies poor appetite and Denies weight loss ENT Reports Normal hearing present, Denies dental pain, Denies dysphagia, Denies hearing loss, Denies mouth pain, Denies odynophagia, Denies throat swelling, Denies tongue swelling and Reports other (Dentition adequate) Card Reports no additional complaints Resp Reports no additional complaints GI Denies abdominal pain, Denies melena, Denies bloating, Denies hematochezia, Denies constipation, Denies GI cramping, Denies dysphagia, Denies excessive flatus, Denies early satiety, Denies heartburn, Denies diarrhea, Denies nausea, Denies odynophagia, Denies vomiting and Denies hematemesis Skin/Breast Denies pruritus, Denies lesions, Denies rash and Denies jaundice Neuro Reports Normal hearing present and Denies Abnormal speech present Endo Denies fatigue Aller/Immun Denies throat swelling and Denies tongue swelling Physical Exam Vital Signs: Last Vital Signs Pulse 57 03/18/23 11:07 BP 136/69 03/18/23 11:07 BMI result Body Mass Index 36.5 Const General: cooperative, no acute distress, well developed and well groomed Nutritional Appearance: well nourished and obese morbidly obese Orientation/consciousness: oriented to person, oriented to place and oriented to time Limitations: No language barrier HEENT Head: Yes normocephalic and Yes atraumatic Eyes General: appearance normal, both eyes and all related structures Pupils: Equal, round and reactive pupils present Neck Neck: Yes normal visual inspection and Yes no lymphadenopathy Thyroid: Thyroid normal Resp Effort & Inspection: normal respiratory effort and able to speak in complete sentences Auscultation: clear to auscultation bilaterally Cardio Rate: regular rate Rhythm: regular rhythm Heart sounds: Normal, physiologic split S2 sound present Peripheral pulses: radial pulses present and posterior tibial pulses present GI Inspection: No distended, Yes Abdominal panniculus present and Yes obesity Palpation (GI): Soft to palpation, nontender, no guarding, not rigid and No hepatosplenomegaly present Percussion: Yes normal to percussion Auscultation: normal bowel sounds Rectal Exam - Female: deferred Skin General skin exam: no rashes or lesions noted, turgor normal, skin not dry, no jaundice, No spider nevi and no striae Rashes: no rashes Nails: normal Neuro General: oriented to person, oriented to place and oriented to time Cranial nerves: Yes Equal, round and reactive pupils present and Yes Normal hearing present Speech: No Abnormal speech present Extrem General: Yes normal to inspection, No clubbing, No cyanosis and No edema Psych Appearance: grossly normal and well kempt Mental Status: mental status grossly normal Speech and movement: Normal speech and movement present Affect: normal affect Attitude: cooperative Thought process: Normal thought process present and not confabulating Thought content: Normal thought content present Insight: Fair insight present (Psych) Judgement: Fair judgement present (Psych) Assessment & Plan Assessment & Plan (1) Pre-op examination: Code(s): Z01.818 - Encounter for other preprocedural examination (2) Family history of polyps in the colon: Comment: 2018 scope hyperplastic polyps only repeat 2022 Code(s): Z83.71 - Family history of colonic polyps (3) Coronary artery disease: Code(s): I25.10 - Atherosclerotic heart disease of [place] coronary artery without angina pectoris Plan She is recovering well from her MD. However, she just lost another family member to COVID. She is agreeable to having her repeat scope scheduled. She will go to update her labs. She has intermittent CIC that resolved with prunes, prune juice and bisacodyl. She denies any respiratory problems and her cardiac conditions are stable. There are no prior problems with anesthesia or sedation. No ID problems. She has FHX of crc. Orders: Orders Comprehensive Met. Panel Today Z01.818 - Encounter for other preprocedural examination Complete Blood Count Auto Diff Today Z01.818 - Encounter for other preprocedural examination Colonoscopy - GI Use Only Today Z01.818 - Encounter for other preprocedural examination Medications: New peg 3350-electrolytes 236-22.74-6.74 -5.86 gram (Golytely) until fecal effluent is clear; do not exceed a total volume of 2,000 mL 240 mL PO Q10M 1 day 4,000 mL 0RF Z12.11 - Encounter for screening for malignant neoplasm of colon Coding Level of Care Code New Pt Level 3 (59158) Diagnoses Pre-op examination Z01.818 Family history of polyps in the colon Z83.71 Coronary artery disease I25.10
[2023-03-18 11:07] VITALS: BP 136/69; PULSE 57; BMI 36.5
== END 2023-03-18 12:34 | disposition home or self-care (01) ==
PROVIDERS: PCP Family Medicine; Visit Provider Nurse Practitioner
DX: Z01.818 Encounter for other preprocedural examination (principal); Z12.11 Encounter for screening for malignant neoplasm of colon; Z86.010 Personal history of colon polyps; I25.10 Atherosclerotic heart disease of native coronary artery without angina pectoris
CPT/HCPCS: 99213

== ENCOUNTER 2023-06-26 11:15 | Outpatient (REF) | payer MEDICAID, SELFPAY ==
[2023-06-26 12:14] LABS: Estimated Average Glucose 117 mg/dL; Hemoglobin A1C 149.3672 umol/L; Hemoglobin A1c % 5.7 % (<6.0)
[2023-06-26 14:05] LABS: Alanine Aminotransferase 21 U/L (0-31); Alkaline Phosphatase 114 U/L (39-117); Anion Gap 14 (12-20); Aspartate Amino Transferase 51 U/L (5-31); Bilirubin Total 0.7 mg/dL (0.0-1.0); Blood Urea Nitrogen 10 mg/dL (9-16); Calcium 10.1 mg/dL (8.4-10.2); Carbon Dioxide 29 mmol/L (22-29); Chloride 103 mmol/L (96-108); Cholesterol 130 mg/dL (<200); Estimated Glomerular Filt Rate > 60; Glucose Random 91 mg/dL (60-115); HDL Cholesterol 35 mg/dL (>40); LDL Cholesterol Calculated 75 mg/dL (<100); Potassium 4.2 mmol/L (3.3-5.1); Sodium 142 mmol/L (135-145); Total Protein 8.2 g/dL (6.5-8.0); Triglycerides 103 mg/dL (<150)
[2023-06-26 14:18] LABS: Reflex LDLD? No
[2023-06-26 14:21] LABS: TSH reflex Free T4 1.19 uIU/mL (0.32-4.0)
== END 2023-06-26 11:16 | disposition home or self-care (01) ==
LOC: HO.HHCL 11:15
PROVIDERS: Visit Provider Family Medicine
DX: I25.10 Atherosclerotic heart disease of native coronary artery without angina pectoris (principal); I10 Essential (primary) hypertension; E66.01 Morbid (severe) obesity due to excess calories; Z68.37 Body mass index [BMI] 37.0-37.9, adult
CPT/HCPCS: 36415; 80053; 80061; 83036; 84443

== ENCOUNTER 2023-08-04 08:48 | Day surgery (SDC) | payer MEDICAID, SELFPAY ==
--- NOTE | 2023-08-01 10:15 | P.CONAN_ITS ---
Documented by User: Peri Calixto NP 08/01/23 10:16 HPI - Anesthesia Eval Consult details Narrative: 57yo F for Colonoscopy Follows [facility] cardiology for CAD. 2020 cath ok. No intervention. Last office visit 03/2023, stable with 1 year f/u PMFSH Active Problems Active Problems: All Active Problems Pre-op examination (Acute) Vulvar lesion (Acute) Acid reflux (Acute) Family history of polyps in the colon (Acute) Hyperlipidemia (Acute) Coronary artery disease (Acute) S/P cardiac cath (Acute) Hypertension (Acute) Acute coronary syndrome (Acute) Past Medical History Medical History Coronary artery disease Hypertension Family History Family History Father Prostate cancer Mother No problems noted. Paternal Aunt Breast cancer Family/Other Breast cancer Surgical History Surgical History Hx of tubal ligation S/P cardiac cath History of cardiac cath History of colonoscopy History of eyelid surgery History of cataract surgery History of 2 sections Social History Social History Alcohol intake: never Patient Tobacco Use Status: Current everyday Tobacco user Tobacco use type: Cigarette Cigarettes Per Day: 5 Years Smoked: 30 +/- Have you been hit, kicked, punched, or otherwise hurt by someone within the past year? If so, by whom?: No Are you DNR?: No Advance Directives: No Advance Directives Information Provided: Yes Nutrition Risks: No Nutritional Risk Patient : No Meds Allergies Allergy/AdvReac Type Severity Reaction Status Date / Time cefepime [CEFEPIME] Allergy Mild RASH Verified 03/18/23 11:15 Home Medications ?Medication ?Instructions ?Recorded ?Confirmed ?Last Taken ?Type aspirin 81 mg chewable tablet 1 tab PO DAILY 12/13/20 03/18/23 Unknown History atorvastatin 80 mg tablet 80 mg PO BEDTIME 12/13/20 03/18/23 Unknown History cholecalciferol (vitamin D3) 50 100 mcg PO DAILY 12/13/20 03/18/23 Unknown History mcg (2,000 unit) capsule lisinopril 20 mg tablet 20 mg PO DAILY 12/13/20 03/18/23 Unknown History bupropion HCl 150 mg tablet,12 hr 150 mg PO DAILY 03/14/22 03/18/23 Unknown History sustained-release cyanocobalamin (vitamin B-12) 1,000 mcg PO DAILY 03/14/22 03/18/23 Unknown History 1,000 mcg tablet tizanidine 2 mg tablet 2 mg PO 03/14/22 03/18/23 Unknown History epinephrine 0.3 mg/0.3 mL 0.3 ml IM ONCE PRN anaphylaxis 03/05/23 03/18/23 Unknown History injection, auto-injector Exam Narrative Narrative: EKG 03/2023 normal sinus rhythm, low-voltage QRS, rate 61, QTC 412 milliseconds 11/27/2020, left main minimal luminal irregularities, LAD and RCA mild diffuse disease, less than 30%, LCX mild luminal irregularities less than 30% Assessment and Plan Assessment Anesthesia Assessment: Chart Reviewed Documented by User: Justina Villarreal MD 08/04/23 10:51 [facility] Past Medical History Medical History Coronary artery disease Hypertension Family History Family History Father Prostate cancer Mother No problems noted. Paternal Aunt Breast cancer Family/Other Breast cancer Family history of problems with anesthesia: No Surgical History Surgical History Hx of tubal ligation S/P cardiac cath History of cardiac cath History of colonoscopy History of eyelid surgery History of cataract surgery History of 2 sections History of Problems with Anesthesia: No Social History Social History Alcohol intake: never Patient Tobacco Use Status: Current everyday Tobacco user Tobacco use type: Cigarette Cigarettes Per Day: 5 Years Smoked: 30 +/- Have you been hit, kicked, punched, or otherwise hurt by someone within the past year? If so, by whom?: No Are you DNR?: No Advance Directives: No Advance Directives Information Provided: Yes Nutrition Risks: No Nutritional Risk Patient : No Meds Allergies Allergy/AdvReac Type Severity Reaction Status Date / Time cefepime [CEFEPIME] Allergy Mild RASH Verified 03/18/23 11:15 Home Medications ?Medication ?Instructions ?Recorded ?Confirmed ?Last Taken ?Type aspirin 81 mg chewable tablet 1 tab PO DAILY 12/13/20 03/18/23 Unknown History atorvastatin 80 mg tablet 80 mg PO BEDTIME 12/13/20 03/18/23 Unknown History cholecalciferol (vitamin D3) 50 100 mcg PO DAILY 12/13/20 03/18/23 Unknown History mcg (2,000 unit) capsule lisinopril 20 mg tablet 20 mg PO DAILY 12/13/20 03/18/23 Unknown History bupropion HCl 150 mg tablet,12 hr 150 mg PO DAILY 03/14/22 03/18/23 Unknown History sustained-release cyanocobalamin (vitamin B-12) 1,000 mcg PO DAILY 03/14/22 03/18/23 Unknown History 1,000 mcg tablet tizanidine 2 mg tablet 2 mg PO 03/14/22 03/18/23 Unknown History epinephrine 0.3 mg/0.3 mL 0.3 ml IM ONCE PRN anaphylaxis 03/05/23 03/18/23 Unknown History injection, auto-injector Exam Airway Mallampati Class: II (one loose tooth top right) TM Dist: >3cm Neck ROM: Full Heart: rrr Lungs: cta Assessment and Plan Assessment Anesthesia Assessment: Anesthesia Plan Discussed Final Anesthetic Review Family History of Problems with Anesthesia: No History of Problems with Anesthesia: No NPO: Yes ASA Class: III Final Preanesthetic Review: No Changes in Pt Med Stat, Meds/Allgs Chart Reviewed and Consent Obtained/Reviewed Patient Risk: Low Procedure Risk: Low Anesthetic Plan Anesthetic Plan: MAC: Disposition: Standard PACU
[2023-08-04 10:24] VITALS: BMI 39.3
[2023-08-04] MEDS: Lactated Ringers 1,000 ML 100 ML IVCONT (10:29)
--- NOTE | 2023-08-04 11:24 | MHC.SHP ---
Pre-Procedural Eval Section A - 24 Hr Update-Section A only Date of Service: 08/04/23 The patient is an INPATIENT: No The patient has been examined within 24 hours of the surgical procedure. The History & Physical has been completed within 30 days and I have reviewed it.: No Section B - Complete if H&P > 30 days Chief Complaint: Screening, family history of colon cancer Relevant Family History (Specify if Yes): Yes Relevant Social History: Tobacco Use Present Medications: see Short Stay Collaborative assessment Medical History: Significant History (Hypertension High cholesterol Smoker Neck and low back pain Coronary artery disease with [place] ) History of Previous Operations: Relevant previous surgery/procedure and date(s) (Hx of tubal ligation S/P cardiac cath History of cardiac cath History of colonoscopy History of eyelid surgery History of cataract surgery History of 2 sections) Allergies: Allergies Allergy/AdvReac Type Severity Reaction Status Date / Time cefepime [CEFEPIME] Allergy Mild RASH Verified 03/18/23 11:15 Review of Systems Sugical H&P ROS: Negative: Constitution, Cardiovascular, Respiratory and Gastrointestinal Exam Surgical H&P Exam: Normal: Heart, Normal: Lungs, Normal: Extremities and Normal: Abdomen Plan Diagnosis/Plan: Unchanged I have reviewed the history and physical and performed a pertinent physical examination on my patient. No changes have occurred unless specified. Time Spent With Patient Time: Total time managing care of this patient today ____ minutes.
--- NOTE | 2023-08-04 11:29 | P.OP_ITS ---
Operative Note Operative Note Date of Service: 08/04/23 Narrative: COLONOSCOPY TILL CECUM Pre-op diagnosis: Colon cancer screening, family history of colon polyps (mom, a sister and a brother). Post-op diagnosis:? Diverticulosis, hemorrhoids Endoscopist:? Abram Serrano MD Anesthesia:?MAC Consent: Indications for the procedure and potential complications of bleeding, perforation, reaction to medications and missed diagnosis were discussed with the patient and informed consent was obtained. Instrument: Olympus PCF H 190 L variable stiffness pediatric colonoscope Monitoring: Vital signs and clinical assessment, intermittent blood pressure monitoring, continuous EKG monitoring, Pulse oximetry and Carbon Dioxide monitoring were done throughout the procedure. Please see anesthesia flowsheet. Colon withdrawl time was 18 minutes. Procedure: The patient was placed in the left lateral decubitis position and pre-procedure medications were administered. After a digital rectal examination of the ano-rectum, the video colonoscope was inserted into the rectum and advanced through the colon to the cecum. The colonoscope was slowly withdrawn in a retrograde panoramic fashion and the colon mucosa was carefully examined including a retroflexed view of the rectum. Findings and interventions are described below. Procedure Difficulty: without difficulty Findings: Terminal Ileum: Not evaluated Cecum: Multiple 5 to 8 mm non-bleeding AVMs in the cecum. Ascending Colon: Scattered moderate diverticulosis throughout the entire colon Transverse Colon: Scattered moderate diverticulosis throughout the entire colon Descending Colon: Scattered moderate diverticulosis throughout the entire colon Sigmoid Colon: Moderate diverticulosis Rectum: Normal Ano-rectum: Small internal hemorrhoids Colon preparation: Good after copious irrigation. [place] Bowel Preparation Scale Right colon; 2 Transverse colon: 2 Left colon; 2 (0 = Unprepared colon segment with mucosa not seen due to solid stool that cannot be cleared. 1 = Portion of mucosa of the colon segment seen, but other areas of the colon segment not well seen due to staining, residual stool and/or opaque liquid. 2 = Minor amount of residual staining, small fragments of stool and/or opaque liquid, but mucosa of colon segment seen well. 3 = Entire mucosa of colon segment seen well with no residual staining, small fragments of stool or opaque liquid) Impression and Post Procedure Diagnosis: Colonoscopy Findings: No polyps were detected Multiple 5 to 8 mm non-bleeding AVMs in the cecum. Moderate diverticulosis seen in the entire colon Small hemorrhoids on retroflexed exam. Plan: Pt has a FU appointment on 08/19/23 with Akilah Rivera NP. Repeat Colonoscopy in 5 years due to family hx of colon polyps (in multiple family members). Above findings were reviewed with the patient and relevant handouts were given and the discharge area.
[2023-08-04 12:05] VITALS: BP 106/67; PULSE 71; RESP 16; TEMP 36.1; O2SAT 96
[2023-08-04 12:20] VITALS: BP 141/94; PULSE 62; RESP 16; TEMP 36.1; O2SAT 99
== END 2023-08-04 13:29 | disposition home or self-care (01) ==
PROVIDERS: PCP Family Medicine; Visit Provider Internal Medicine Gastroenterology
PROC: 0DJD8ZZ Inspection of Lower Intestinal Tract, Via Natural or Artificial Opening Endoscopic (ICD-10-PCS; CPT 45378; principal; 2023-08-04 13:00)
DX: Z12.11 Encounter for screening for malignant neoplasm of colon (principal); Z83.719 Family history of colon polyps, unspecified; K57.30 Diverticulosis of large intestine without perforation or abscess without bleeding; K64.8 Other hemorrhoids; K55.20 Angiodysplasia of colon without hemorrhage; I10 Essential (primary) hypertension; I25.10 Atherosclerotic heart disease of native coronary artery without angina pectoris; Z95.5 Presence of coronary angioplasty implant and graft; I25.2 Old myocardial infarction; E78.00 Pure hypercholesterolemia, unspecified; Z79.82 Long term (current) use of aspirin; Z79.899 Other long term (current) drug therapy; Z88.8 Allergy status to other drugs, medicaments and biological substances; F17.210 Nicotine dependence, cigarettes, uncomplicated
CPT/HCPCS: 45378; J2704

== ENCOUNTER → 2023-08-04 08:48 | Outpatient (BNV) | payer MEDICAID, SELFPAY | PROVIDERS: PCP Family Medicine; Visit Provider Internal Medicine Gastroenterology | DX: Z12.11 Encounter for screening for malignant neoplasm of colon (principal); Z83.719 Family history of colon polyps, unspecified; K57.90 Diverticulosis of intestine, part unspecified, without perforation or abscess without bleeding; Q27.33 Arteriovenous malformation of digestive system vessel; K64.8 Other hemorrhoids | CPT/HCPCS: 45378 ==

== ENCOUNTER 2023-08-05 09:07 | Outpatient (REF) | payer MEDICAID, SELFPAY ==
--- NOTE | ~2023-08-05 | MM_ITS ---
EXAMINATION: MM SCREENING DIGITAL BREAST TOMOSYNTHESIS, BILATERAL CLINICAL INFORMATION: Screening. Asymptomatic. COMPARISON: Mammography: This study is compared with prior exams dating back to 2011. TECHNIQUE: Digital breast tomosynthesis is performed in both the craniocaudal and mediolateral oblique views along with computer-aided detection (CAD). Synthesized 2D images are generated from the tomosynthesis. FINDINGS: The breasts are almost entirely fatty (ACR BI-RADS breast composition Category a). There are no significant masses, abnormal calcifications, or other abnormalities. MM/MM tomosynthesis screening BI IMPRESSION: No mammographic evidence of malignancy. ASSESSMENT: BI-RADS BI-RADS 1 - Negative RECOMMENDATION: Routine annual mammography screening. 1 year F/U This examination should not preclude the clinical evaluation of a suspicious palpable abnormality. This patient's information was entered into a reminder system with a target due date for their next mammogram.
== END 2023-08-05 09:08 | disposition home or self-care (01) ==
LOC: HO.MAMMO 09:07
PROVIDERS: PCP Family Medicine; Visit Provider Family Medicine
DX: Z12.31 Encounter for screening mammogram for malignant neoplasm of breast (principal)
CPT/HCPCS: 77063; 77067

== ENCOUNTER → 2023-08-05 09:30 | Outpatient (BNV) | payer MEDICAID, SELFPAY | PROVIDERS: PCP Family Medicine; Visit Provider Radiology Diagnostic Radiology | DX: Z12.31 Encounter for screening mammogram for malignant neoplasm of breast (principal) | CPT/HCPCS: 77063; 77067 ==

== ENCOUNTER 2024-07-05 08:53 | Outpatient (AMB) | payer MEDICARE, MEDICAID, SELFPAY ==
[2024-07-05 08:57] VITALS: BP 124/82; PULSE 67; BMI 39.9
--- NOTE | 2024-07-05 08:57 | MHC.OFFVIS ---
Vital Signs 07/05/24 08:57 Height 5 ft 4 in Weight 232 lb 5.875 oz BMI 39.9 BP 124/82 Blood Pressure Location Lt brachial Position Sitting Pulse 67 Pulse Source Monitor Intake Visit Reasons: 1 year f/u Senior Process Analyst Required: No Allergies cefepime [CEFEPIME] Allergy (Mild, Verified 07/05/24 09:00) RASH Medication List - Last Reconciled 07/05/24 by Ludy Gonzalez, FUR VAULT ATTENDANT-C aspirin 1 tab PO DAILY atorvastatin 80 mg PO BEDTIME cholecalciferol (vitamin D3) 100 mcg PO DAILY cyanocobalamin (vitamin B-12) 1,000 mcg PO DAILY epinephrine 0.3 mL IM ONCE PRN lisinopril 20 mg PO DAILY metoprolol succinate ER 12.5 mg (1/2 x 25 mg) PO DAILY omeprazole 20 mg PO DAILY 90 days HPI HPI 1 year f/u: Details: Pili is a 58-year-old female past medical history of hypertension, smoking, nonobstructive CAD who presents for follow-up. Her last prior visit was 03/18/2023. Today she reports That since last visit she is now on disability due to issues with back and leg discomfort. She has not had any cardiac issues that she is aware of. She denies chest discomfort, shortness of breath, palpitations, edema. She tries to remain active but does no routine exercise. Taking meds as directed. Still smoking less than half a pack per day. FORMERLY [facility] Medical History Coronary artery disease Hypertension Surgical History Hx of tubal ligation S/P cardiac cath History of cardiac cath History of colonoscopy History of eyelid surgery History of cataract surgery History of 2 sections Family History Father Prostate cancer Mother No problems noted. Paternal Aunt Breast cancer Family/Other Breast cancer Social History Alcohol intake: never Patient Tobacco Use Status: Current everyday Tobacco user Tobacco use type: Cigarette Cigarettes Per Day: 5 Years Smoked: 30 +/- Female Reproductive History Menstrual Age of Menarche: 14 Review of Systems Const All systems reviewed & are unremarkable except as noted in HPI and below ENT Denies dizziness Card Denies chest pain, Denies chest pain at rest, Denies chest pain with activity, Denies rapid heart rate, Denies pedal edema, Denies edema, Denies leg edema, Denies lightheadedness, Denies palpitations, Denies dyspnea, Denies dyspnea on exertion and Denies orthopnea Resp Denies cough, Denies dyspnea and Denies dyspnea on exertion GI Denies hematochezia and Denies change in stool character Musc Denies abnormal gait, Denies limited range of motion, Denies muscle cramps, Denies muscle weakness, Denies numbness, Denies radiating pain into limb, Denies stiffness and Denies tingling Neuro Denies abnormal gait, Denies dizziness, Denies numbness and Denies tingling Endo Denies palpitations Physical Exam Vital Signs: Last Vital Signs Pulse 67 07/05/24 08:57 BP 124/82 07/05/24 08:57 BMI result Body Mass Index 39.9 Const General: cooperative, healthy appearing, comfortable and no acute distress Orientation/consciousness: patient oriented x3 Neck Neck: Yes normal visual inspection Resp Effort & Inspection: normal respiratory effort Auscultation: clear to auscultation bilaterally, no crackles, no rales, no rhonchi and no wheezes Cardio Jugular venous distension: no JVD Rate: regular rate Rhythm: regular rhythm Heart sounds: S1 normal heart sound present, S2 normal heart sound present, no murmurs and no rubs Neuro General: patient oriented x3 Extrem General: Yes normal to inspection and No no pedal edema Psych Appearance: grossly normal Mental Status: mental status grossly normal Speech and movement: Normal speech and movement present Office Procedures EKG Details: today, read by me, normal sinus rhythm, can not exclude prior anterior infarct, rate 67, QTC 412 millisecond [id number], Complete Assessment & Plan Assessment & Plan (1) Coronary artery disease: Code(s): I25.10 - Atherosclerotic heart disease of [place] coronary artery without angina pectoris Category: Medical Plan: Known history of nonobstructive coronary artery disease. No reports of anginal sounding symptoms. EKG done today showing sinus rhythm, can not exclude prior anterior infarct, rate 67. Cardiac risk factor modification reviewed with her. Continue aspirin indefinitely. Continue atorvastatin with ideal LDL goal less than 70. Continue with good blood pressure control, goal less than 130/85. No med changes made today. Signs and symptoms of angina reviewed with her. Cardiology follow-up in 1 year, sooner if needed. Emergency care if needed for symptoms. (2) S/P cardiac cath: Comment: 11/27/2020, left main minimal luminal irregularities, LAD and RCA mild diffuse disease, less than 30%, LCX mild luminal irregularities less than 30% Code(s): Z98.890 - Other specified postprocedural states Category: Surgical (3) Hyperlipidemia: Code(s): E78.5 - Hyperlipidemia, unspecified Category: Medical Plan: [place] LDL goal less than 70. She is on high-dose atorvastatin. No recent lipid profile in our system. Will enter order for labs, patient informed. (4) Hypertension: Code(s): I10 - Essential (primary) hypertension Category: Medical Qualifiers: Hypertension type: primary hypertension Qualified Code(s): I10 - Essential (primary) hypertension Plan: Controlled at present. No med changes made. Continues on lisinopril and metoprolol. Benefits of weight loss and increasing physical activity reviewed Plan Time spent on chart review, documentation, interview and assessment Orders: Orders Comprehensive Met. Panel Today I25.10 - Atherosclerotic heart disease of [place] coronary artery without angina pectoris Lipid Panel Today I25.10 - Atherosclerotic heart disease of [place] coronary artery without angina pectoris Coding Level of Care Code Est Pt Level 4 (50440) Complex EM visit Add On G2211 Diagnoses Coronary artery disease I25.10 S/P cardiac cath Z98.890 Hyperlipidemia E78.5 Primary hypertension I10 Hypertension type: primary hypertension CPT Codes EKG - CPT: 55782-[id number], Complete ([id number]) Time Spent (min) 28
== END 2024-07-05 09:23 | disposition home or self-care (01) ==
LOC: HO.HCS 08:53
PROVIDERS: PCP Family Medicine; Visit Provider Nurse Practitioner Family
DX: I25.10 Atherosclerotic heart disease of native coronary artery without angina pectoris (principal); Z98.890 Other specified postprocedural states; E78.5 Hyperlipidemia, unspecified; I10 Essential (primary) hypertension
CPT/HCPCS: 93010; 99214; G2211

== ENCOUNTER → 2024-07-05 08:53 | Outpatient (BNVA) | payer MEDICARE, MEDICAID, SELFPAY | PROVIDERS: PCP Family Medicine; Visit Provider Nurse Practitioner Family | DX: I25.10 Atherosclerotic heart disease of native coronary artery without angina pectoris (principal); I10 Essential (primary) hypertension; E78.5 Hyperlipidemia, unspecified; F17.210 Nicotine dependence, cigarettes, uncomplicated; Z98.890 Other specified postprocedural states | CPT/HCPCS: 93005; 99212 ==

== ENCOUNTER 2025-01-19 11:38 | Outpatient (REF) | payer MEDICARE, MEDICAID, SELFPAY ==
--- OUTSIDE RECORDS SUMMARY | 2025-01-19 10:30 | XMS_ITS | Encounter Summary ---
Author Organization [employer] Address [address] [place] [address] [address] [place] [address] Care Team Providers Care Staff Auditor Name Role Phone Dionne Hernadez MD Primary Care Provider [phone] Encounter Details Date Type Department Care Team (Late st Contact Info) Description 01/19/2025 10:30 AM EDT Office Visit [facility] MED[facility]INE [address] [place] [address] Dionne Hernadez MD [address] [place] [address] Essential hypertension (Primary Dx); Dyslipidemia; Coronary artery disease involving lumbee coronary artery of lum[place] heart without angina pectoris; Primary hypertension Social History Tobacco Use Types Packs/Day Years Used Date Smoking Tobacco: Every Day Cigarettes Passive Smoke Exposure: Current Smokeless Tobacco: Never Depression Answer Date Recorded Patient Health Questionnaire-9 Score 4 01/19/2025 Patient Health Questionnaire-9 Score 4 01/19/2025 Last PHQ-9: Questionnaire Data Not on file 1 Housing Stability Answer Date Recorded What is your housing situation today? I have palmer norris 01/11/[address] you li ve. Do you have problems with any of the following? None of the above 01/11/2025 Food Insecurity Answer Date Recorded Within the past 12 months, y ou worried that your food would run out before you got money to buy more: Never True 01/11/2025 Within the past 12 months,th e food you bought just didn't last and you didn't have enough money to get more: Never True 10/2024 Transportation Answer Date Recorded In the past 12 months, has l ack of transportation kept you from medical appts, meetings, work or from getting things needed for daily living? No 01/11/2025 Utilities Answer Date Recorded In the past 12 months, has t he electric, gas, oil or water company threatened to shut off services in your home? No 01/11/2025 Depression Answer Date Recorded Patient Health Questionnaire-2 Score 1 01/19/2025 Internet Access Answer Date Recorded Internet Access Q1 Yes 01/11/2025 Internet Access Q2 Not on file 01/11/2025 Comments Unknown Sex and Gender Information Value Date Recorded Sex Assigned at Female 02/04/2022 10:15 AM EDT Legal Sex Female 10:15 AM EDT Gender Identity Female 02/04/2022 10:15 AM EDT Sexual Orientation Straight 02/04/2022 10 :15 AM EDT documented as of this encounter Last Filed Vital Signs Vital Sign Reading Time Taken Comments Blood Pressure 126/80 01/19/2025 10:59 AM EDT Pulse 60 01/19/2025 10:59 AM EDT Temperature 35.8 C (96.4 F) 01/19/2025 10:59 AM EDT Respiratory Rate 16 01/19/2025 10:59 AM EDT Oxygen Saturation 97% 01/19/2025 10:59 AM EDT Inhaled Oxygen Concentration - - Weight 103 kg (227 lb 9.6 oz) 01/19/2025 10:59 A M EDT Height 165.1 cm (5' 5 ) 01/19/2025 10:59 AM EDT Body Mass Index 37.87 01/19/2025 10:59 AM EDT documented in this encounter Functional Status * Over the past 2 weeks, how often have you been bothered by any of the following problems? Question Answer Date of Assessment Author Patient Health Questionnaire -2 Score 1 01/19/2025 2:50 PM EDT Criselda Gaytan MA * Little interest or pleasure in doing things Answer Date of Assessment Author Not at all 01/19/2025 2:50 PM EDT Annie Gaytan MA * Feeling down, depressed, or hopeless Answer Date of Assessment Author Several days 01/19/2025 2:50 PM EDT Annie Gaytan MA * Trouble falling or staying asleep, or sleeping too much Answer Date of Assessment Author Several days 01/19/2025 2:50 PM EDT Annie Gaytan MA * Feeling tired or having little energy Answer Date of Assessment Author Several days 01/19/2025 2:50 PM EDT Annie Gaytan MA * Poor appetite or overeating Answer Date of Assessment Author Several days 01/19/2025 2:50 PM EDT Annie Gaytan MA * Feeling bad about yourself - or that you are a failure or have let yourself or your family down Answer Date of Assessment Author Not at all 01/19/2025 2:50 PM EDT Annie Gaytan MA * Trouble concentrating on things, such as reading the newspaper or watching television Answer Date of Assessment Author Not at all 01/19/2025 2:50 PM EDT Annie Gaytan MA * Moving or speaking so slowly that other people could have noticed? Or the opposite - being so fidgety or restless that you have been moving around a lot more than usual. Answer Date of Assessment Author Not at all 01/19/2025 2:50 PM EDT Annie Gaytan MA * Thoughts that you would be better off or hurting yourself in some way Answer Date of Assessment Author Not at all 01/19/2025 2:50 PM EDT Annie Gaytan MA * Patient Health Questionnaire-9 Score Answer Date of Assessment Author 4 01/19/2025 2:50 PM EDT Annie Gaytan MA * How difficult have these problems made it for you to do your work, take care of things at home, or get along with other people? Answer Date of Assessment Author Not difficult at all 01/19/2025 2:50 PM EDT [facility] Annie pederson MA documented as of this encounter Plan of Treatment Not on file documented as of this encounter Visit Diagnoses Diagnosis Essential hypertension- Primary Unspecified essential hypertension Dyslipidemia Other and unspecified hyperlipidemia Coronary artery disease involving lumbee coronary artery of lum[place] heart without angina pectoris Primary hypertension Unspecified essential hypertension documented in this encounter Additional Health Concerns Assessment Noted Time PHQ-9 Depression Total Score: 4 01/20/20 2:50 PM EDT documented as of this encounter Care Teams Staff Auditor Relationship Specialty Start Date End Date Dionne Hernadez MD [address] [place] [address] PCP - General Family Medicine 12/28/21 documented as of this encounter
[2025-01-19 13:53] LABS: Cholesterol 138 mg/dL (<200); HDL Cholesterol 36 mg/dL (>40); Triglycerides 123 mg/dL (<150)
[2025-01-19 13:58] LABS: Alanine Aminotransferase 30 U/L (0-31); Albumin Level 4.3 g/dL (3.5-5.0); Alkaline Phosphatase 126 U/L (39-117); Anion Gap 10 (12-20); Aspartate Amino Transferase 72 U/L (5-31); Blood Urea Nitrogen 11 mg/dL (9-16); Calcium 9.7 mg/dL (8.4-10.2); Carbon Dioxide 27 mmol/L (22-29); Chloride 107 mmol/L (96-108); Cholesterol 141 mg/dL (<200); Estimated Glomerular Filt Rate > 60; HDL Cholesterol 34 mg/dL (>40); Potassium 4.2 mmol/L (3.3-5.1); Sodium 140 mmol/L (135-145); Total Protein 7.8 g/dL (6.5-8.0); Triglycerides 126 mg/dL (<150)
[2025-01-19 14:11] LABS: Microalbum/Creatinine Ratio Ur 23.6 ug/mg cr (<30)
--- OUTSIDE RECORDS SUMMARY | 2025-01-19 14:50 | XMS_ITS | Encounter Summary ---
Author Organization [employer] Address [address] [facility] [address] [place] [address] Care Team Providers Care Captain Waiter Name Role Phone Dionne Hernadez MD Primary Care Provider [phone] Encounter Details Date Type Department Care Team (Latest Contact Info) Description 01/19/2025 Travel Social History Tobacco Use Types Packs/Day Years [...] AM EDT documented as of this encounter Functional Status * Over the [...] Assessment Author Several days 01/19/2025 2:50 PM ZAINABT Annie Gaytan MA * Feeling tired or having little energy Answer Date of Assessment Author Several days 01/19/2025 2:50 PM ZAINABT Annie Gaytan MA * Poor appetite or overeating Answer Date of Assessment Author Several days 01/19/2025 2:50 PM ZAINABT Annie Gaytan MA * Feeling bad about yourself - or that you are a failure or have let yourself or your family down Answer Date of Assessment Author Not at all 01/19/2025 2:50 PM EDT Annie Gaytan MA * Trouble concentrating on things, such as reading the newspaper or watching television Answer Date of Assessment Author Not at all 01/19/2025 2:50 PM ZAINABT Annie Gaytan MA * Moving or speaking so slowly that other people could have noticed? Or the opposite - being so fidgety or restless that you have been moving around a lot more than usual. Answer Date of Assessment Author Not at all 01/19/2025 2:50 PM Annie Eduardo MA * Thoughts that you would be better off or hurting yourself in some way Answer Date of Assessment Author Not at all 01/19/2025 2:50 PM EDT nAnie Gaytan MA * Patient Health Questionnaire-9 Score Answer Date of Assessment Author 4 01/19/2025 2:50 PM EDT Annie Gaytan MA * How difficult have these problems made it for you to do your work, take care of things at home, or get along with other people? Answer Date of Assessment Author Not difficult at all 01/19/2025 2:50 PM EDT [facility] Annie pederson MA documented as of this encounter Plan of Treatment Not on file documented as of this encounter Visit Diagnoses Not on filedocumented in this encounter Additional Health Concerns Assessment Noted Time PHQ-9 Depression Total Score: 4 01/20/20 25 2:50 PM EDT documented as of this encounter Care Teams Captain Waiter Relationship Specialty Start Date End Date Dionne Hernadez MD [address] [place] [id number] PCP - General Family Medicine 12/28/21 documented as of this encounter
--- OUTSIDE RECORDS SUMMARY | 2025-01-19 14:50 | XMS_ITS | Encounter Summary ---
Author Organization [email or web address] Address [address] [place] [address] [address] [place] [address] Care Team Providers Care Brineyard Supervisor Name Role Phone Dionne Hernadez MD Primary Care Provider [phone] Reason for Visit * Reason Onset Date Comments chart prep 01/18/2025 Encounter Details Date Type Department Care Team ([facility] st Contact Info) Description 01/18/2025 Telephone [facility] MEDICINE [address] [place] [address] Dionne Hernadez MD [address] [place] [address] chart prep Social History Tobacco Use Types Packs/Day Years [...] AM EDT documented as of this encounter Miscellaneous Notes * Telephone Encounter - Annie Gaytan MA - 01/18/2025 9:54 AM EDT ..Chart Prep Labs: not done Images: not applicable Vaccines due: Covid Due, Hep B Due, PCV20 Due, and Flu Due Referrals: Cardiology Pending appointment on [id number] Screenings: Not Applicable Overdue care gaps: Sbirt, PHQ9, GAD7, and Disability documented in this encounter Plan of Treatment Not on file documented as of this encounter Visit Diagnoses Not on filedocumented in this encounter Additional Health Concerns Assessment Noted Time PHQ-9 Depression Total Score: 5 06/26/19 24 10:09 AM EDT documented as of this encounter Care Teams Brineyard Supervisor Relationship Specialty Start Date End Date Dionne Hernadez MD [address] [place] [address] PCP - General Family Medicine 12/28/21 documented as of this encounter
--- OUTSIDE RECORDS SUMMARY | 2025-01-19 14:50 | XMS_ITS | Encounter Summary ---
Author Organization [employer] Address [address] [place] [address] [address] [place] [address] Care Team Providers Care Supervisor Telephone Clerks Name Role Phone Dionne Hernadez MD Primary Care Provider Reason for Visit * Reason Comments Med Refill Encounter Details Date Type Department Care Team (Late st Contact Info) Description 05/14/2024 Refill [facility] MEDICINE [address] [place] [address] Dionne Hernadez MD [address] [place] [address] Social History Tobacco Use Types Packs/Day Years Used Date Smoking Tobacco: Every Day Cigarettes Passive Smoke Exposure: Current Smokeless Tobacco: Never Depression Answer Date Recorded Patient Health Questionnaire-9 Score 5 06/26/2023 Patient Health Questionnaire-9 Score 5 06/26/2023 Last PHQ-9: Questionnaire Data Not on file 0 06/26/2023 Housing Stability Answer Date Recorded What is your housing situation today? I have palmer norris 06/26/[address] you li ve. Do you have problems with any of the following? None of the above 06/26/2023 Food Insecurity Answer Date Recorded Within the past 12 months, y ou worried that your food would run out before you got money to buy more: Never True 06/26/2023 Within the past 12 months,th e food you bought just didn't last and you didn't have enough money to get more: Never True Transportation Answer Date Recorded In the past 12 months, has l ack of transportation kept you from medical appts, meetings, work or from getting things needed for daily living? No 06/26/2023 Utilities Answer Date Recorded In the past 12 months, has t he electric, gas, oil or water company threatened to shut off services in your home? No 06/26/2023 Depression Answer Date Recorded Patient Health Questionnaire-2 Score 2 06/26/2023 Comments Unknown Sex and Gender Information Value Date Recorded Sex Assigned at Female 02/04/2022 10:15 AM EDT Legal Sex Female 10:15 AM EDT Gender Identity Female 02/04/2022 10:15 AM EDT Sexual Orientation Straight 02/04/2022 10 :15 AM EDT documented as of this encounter Plan of Treatment Not on file documented as of this encounter Visit Diagnoses Not on filedocumented in this encounter Additional Health Concerns Assessment Noted Time PHQ-9 Depression Total Score: 5 06/26/19 24 10:09 AM EDT documented as of this encounter Care Teams Supervisor Telephone Clerks Relationship Specialty Start Date End Date Dionne Hernadez MD [address] [place] [id number] PCP - General Family Medicine 12/28/21 documented as of this encounter
--- OUTSIDE RECORDS SUMMARY | 2025-01-19 14:50 | XMS_ITS | Encounter Summary ---
Author Organization [employer] Address [address] [facility] [address] [place] [address] Care Team Providers Care Staff Psychologist Name Role Phone Dionne Hernadez MD Primary Care Provider [phone] Encounter Details Date Type Department Care Team (Late st Contact Info) Description 12/22/2024 Orders Only [facility] MEDICINE [address] [place] [address] Dionne Hernadez MD [address] [place] [address] Essential hypertension (Primary Dx); Dyslipidemia; Coronary artery disease involving curyung coronary artery of curyung heart without angina pectoris; Gastroesophageal reflux disease, unspecified whether esophagitis present; Abdominal bloating; Screening for diabetes mellitus Social History Tobacco Use Types Packs/Day Years [...] as of this encounter Plan of Treatment Pending Results Name Type Priority Associated Diagnoses Date /Time Lipid Panel with Reflex to Direct LDL Lab Routine Dyslipidemia 01/19/2025 11:48 AM EDT Scheduled Orders Name Type Priority Associated Diagnoses Orde r Schedule Comprehensive Metabolic Panel Lab Routine Essential hypertension Expected: 12/22/2024 (Approximate), Expires: 12/22/2025 Helicobacter pylori Antigen, EIA, Stool Lab Routine Gastroesophageal reflux disease, unspecified whether esophagitis present Abdominal bloating Expected: 12/22/2024, Expires: 12/22/2025 documented as of this encounter Procedures Procedure Name Priority Date/Time Associated Diagnosis Comments LIPID PANEL WITH REFLEX TO DIRECT LDL Routine 01/19/2025 11:48 AM EDT Dyslipidemia ALBUMIN, RANDOM URINE W/CREATININE Routine 01/19/2025 11:48 AM EDT Essential hypertension HEMOGLOBIN A1C Routine 01/19/2025 11:48 AM EDT Screening for diabetes mellitus LIPID PANEL, STANDARD Routine 01/19/2025 11:48 AM EDT Essential hypertension COMPREHENSIVE METABOLIC PANEL Routine 01/19/2025 11:48 AM EDT Essential hypertension documented in this encounter Results * (ABNORMAL) Lipid Panel, Standard (01/19/2025 11:48 AM EDT) Triglycerides 126 <150 mg/dL [facility] Comment:Desirable Triglyceri de: less than 150 mg/dLBorderline High Triglyceride 150-199 mg/dLHigh Triglyceride: 200-499 mg/dLVery High Triglyceride: greater than or equal to 5OO mg/dL Cholesterol 141 <200 mg/dL [facility] Comment:Desirable Cholestero l: less than 200 mg/dLBorderline High Cholesterol: 200-239 mg/dLHigh Cholesterol: greater than 239 mg/dL LDL Cholesterol Calculated 82 <100 mg/dL [facility] Comment:Desirable LDL: less than 100 mg/dLNear Optimal/Above Optimal LDL: 110- 129 mg/dLBorderline High LDL: 130-159 mg/dLHigh LDL: 160-189 mg/dLVery High LDL: greater than or equal to 190 mg/dL HDL Cholesterol 34(L) >40 mg/dL [facility] Comment:Desirable HDL: great er than 40 mg/dL Note: This HDL assay may give artificially low results in patients with liver disease. 01/19/2025 11:4 8 AM EDT 01/19/2025 1:07 PM EDT us Generic External Data Provider LAB BLOOD ORDERAB LES Final Result [facility] [address] [place] [phone] * (ABNORMAL) Comprehensive Metabolic Panel (01/19/2025 11:48 AM EDT) Sodium 140 135 - 145 mmol/L [facility] Potassium 4.2 3.3 - 5.1 mmol/L [facility] Chloride 107 96 - 108 mmol/L [facility] Carbon Dioxide 27 22 - 29 mmol/L [facility] Anion Gap 10(L) 12 - 20 [facility] Urea Nitrogen (BUN) 11 9 - 16 mg/dL [facility] Creatinine, Serum 0.94 0.5 - 1.4 mg/dL [facility] Estimated Glomerular Filt Rate >60 [facility] Comment:Chronic Kidney Disea se: Estimated GFR < 60 mL/min/[id number] Kidney Disease: Estimated GFR < 15 mL/min/1.73m2 Glucose 106 60 - 115 mg/dL [facility] Calcium 9.7 8.4 - 10.2 mg/dL [facility] Bilirubin, Total 0.3 0.0 - 1.0 mg/dL [facility] Aspartate Amino Transferase 72(H) 5 - 31 U/L [facility] Alanine Aminotransferase 30 0 - 31 U/L [facility] Total Protein 7.8 6.5 - 8.0 g/dL [facility] Albumin Level 4.3 3.5 - 5.0 g/dL [facility] Alkaline Phosphatase 126(H) 39 - 117 U/L [facility] 01/19/2025 11:4 8 AM EDT 01/19/2025 1:07 PM EDT us Generic External Data Provider LAB BLOOD ORDERAB LES Final Result Performing Organization Address City/[facility] Co de Phone Number [facility] [address] [place] [phone] * Albumin, Random Urine W/Creatinine (01/19/2025 11:48 AM EDT) Creatinine, Urine 110.05 mg/dL [facility] Microalbumin Urine 26.0 mg/L [facility] Microalbum Creatinine Ratio Ur 23.6 <30 ug/mg cr [facility] Comment:Albumin/Creatinine R atio Reference Ranges: Normal: < 30 ug/mg creatinine Microalbuminuria: 30 - 300 ug/mg creatinineClinical Albuminuria: > 300 ug/mg creatinine Urine (Urine, Random) 01/19/2025 11:48 AM EDT 01/19/2025 12:59 PM EDT us Dionne Hernadez MD LAB URINE ORDERABLES Final Resul t Performing Organization Address City/[facility]/ZIP Co de Phone Number [facility] [address] [place] [phone] * Hemoglobin A1c (01/19/2025 11:48 AM EDT) Hemoglobin A1c 5.9 <6.0 % [facility] Comment:Hemoglobin A1C Refer ence Range Adults: 4.8 - 6.0 % Non diabetic: < 6.0 % Goal: < 7.0 %Additional Action Suggested: > 8.0 %Note: Hemoglobin A1c results are invalid for patients with abnormal amounts of HbF. Blood transfusions may impact the HbA1c concentration in the patient sample. Estimated Average Glucose 123 mg/dL [facility] Comment:eAG = Estimated ave rage glucose which is %A1C expressed asaverage glucose, using the formula of the [id number]-[id number] Glucose study (ADAG), Diabetes Care, Vol.31,#8,Nov. 2007 Blood Venous blood specimen / Unknown 01/19/2025 11:48 AM EDT 01/19/2025 1:07 PM EDT us Dionne Hernadez MD LAB BLOOD ORDERABLES Final Resul t [facility] [address] [place] [phone] documented in this encounter Visit Diagnoses Diagnosis Essential hypertension- Primary Unspecified essential hypertension Dyslipidemia Other and unspecified hyperlipidemia Coronary artery disease involving curyung coronary artery of curyung heart without angina pectoris Gastroesophageal reflux disease, unspecified whether esophagitis present Abdominal bloating Flatulence, eructation, and gas pain Screening for diabetes mellitus documented in this encounter Additional Health Concerns Assessment Noted Time PHQ-9 Depression Total Score: 5 06/26/19 24 10:09 AM EDT documented as of this encounter Care Teams Staff Psychologist Relationship Specialty Start Date End Date Dionne Hernadez MD [address] [place] [phone] PCP - General Family Medicine 12/28/21 documented as of this encounter
--- OUTSIDE RECORDS SUMMARY | 2025-01-19 14:50 | XMS_ITS | Clinical Summary ---
Author Organization [employer] Address [address] [place] [address] [address] [place] [address] Care Team Providers Care Senior Ios Software Engineer Name Role Phone Dionne Hernadez MD Primary Care Provider [phone] Allergies Active Allergy Reactions Criticality Noted Date Comments Aspirin Swelling 06/27/2023 Facial puffiness Cefepime Rash,Unknown Low 09/23/2017 Tuberculin Purified Protein Derivative 05/07/2022 Medications * This document contains information received from the source organization and may not represent a complete record from that organization. omeprazole (PriLOSEC) [address] capsule Take 20 mg by mouth in the morning. 04/15/19 23 Active EPINEPHrine (Epipen) 0.3 MG/0.3ML injection syringeIndicati ons:Bee sting allergy USE DIRECTED FOR ANAPHYLAXIS AND CALL 911 2 each 2 07/09/19 24 Active cholecalciferol VITAMIN D (Vitamin D-3) 50 MCG (1999) capsuleIndicati ons:Vitamin D deficiency TAKE 2 CAPSULES BY MOUTH EVERY DAY 180 capsule 1 01/16/20 24 Active cyanocobalamin (Vitamin B-12) 1000 MCG tablet TAKE 1 TABLET BY MOUTH EVERY DAY IN THE MORNING 90 tablet 1 03/15/20 24 Active metoprolol succinate XL (Toprol-XL) 25 MG 24 hr tabletIndicatio ns:Primary hypertension Take 0.5 tablets (12.5 mg) by mouth Once per day. 45 tablet 3 01/20/20 25 Active lisinopril 20 MG tabletIndicatio ns:Primary hypertension Take 1 tablet (20 mg) by mouth in the morning. 90 tablet 3 01/20/20 25 Active atorvastatin (Lipitor) 80 MG tablet Take 1 tablet (80 mg) by mouth at bedtime. 90 tablet 3 01/20/20 25 Active metoprolol succinate XL (Toprol-XL) 25 MG 24 hr tabletIndicatio ns:Primary hypertension Take 0.5 tablets (12.5 mg) by mouth in the morning. 45 tablet 1 03/08/20 22 2024 Discontinued(R eorder (will not trigger notification to Pharmacy)) tiZANidine (Zanaflex) 2 MG tabletIndicatio ns:Chronic low back pain, unspecified back pain laterality, unspecified whether sciatica present TAKE 1 TABLET BY MOUTH AT BEDTIME NEEDED 15 tablet 2 07/09/19 24 2024 Discontinued(S geeta effects) atorvastatin (Lipitor) 80 MG tablet TAKE 1 TABLET BY MOUTH EVERYDAY AT BEDTIME 90 tablet 1 09/03/19 25 2024 Discontinued(R eorder (will not trigger notification to Pharmacy)) lisinopril 20 MG tabletIndicatio ns:Primary hypertension TAKE 1 TABLET BY MOUTH EVERY DAY IN THE MORNING 90 tablet 1 09/03/19 25 2024 Discontinued(R eorder (will not trigger notification to Pharmacy)) Active Problems Problem Noted Date Diagnosed Date Abdominal bloating 08/12/2022 Assessment & Plan (06/27/2023 9:17 AM EDT): Will check H. Pylori test Assessment & Plan (08/12/2022 10:43 AM EDT): Will check H. Pylori test RUQ pain 08/12/2022 Assessment & Plan (08/12/2022 10:42 AM EDT): Will check labs and ultrasound Dyslipidemia 05/07/2022 Assessment & Plan (06/26/2023 5:34 PM EDT): - last lipid profile 12/28/21 - continue atorvastatin 80 mg at bedtime - continue working on lifestyle modifications Assessment & Plan (08/12/2022 10:44 AM EDT): - last lipid profile 12/28/21 - continue atorvastatin 80 mg at bedtime - continue working on lifestyle modifications Assessment & Plan (05/12/2022 5:26 PM EST): - last lipid profile 12/28/21 - continue atorvastatin 80 mg at bedtime - continue working on lifestyle modifications Coronary artery disease 05/07/2022 Assessment & Plan (06/27/2023 9:16 AM EDT): -Cardiac cath in Nov 2020 left main minimal luminal irregularities, LAD and RCA mild diffuse disease, < 30%. Continue ASA, atorvastatin. - ASA self-discontinued due to allergic reaction of eye puffiness. - continue metoprolol and lisinopril - f/u with cardiology as scheduled - cleared for work, activity and procedure by cards - continue working on lifestyle modifications Assessment & Plan (08/12/2022 10:43 AM EDT): - continue ASA, metoprolol and lisinopril - f/u with cardiology as scheduled - cleared for work by cards Assessment & Plan (05/07/2022 10:55 AM EST): - continue ASA, metoprolol and lisinopril - f/u with cardiology as scheduled - cleared for work by cards GERD (gastroesophageal reflux disease) Assessment & Plan (06/26/2023 9:39 PM EDT): - Will check H. Pylori stool test - Continue Omeprazole 20 mg once daily. Depression 05/07/2022 Assessment & Plan (06/27/2023 9:17 AM EDT): - patient is prescribed bupropion, but is not adherent. Will discontinue. - pt is also trying to quit smoking and losing weight - patient was referred to behavioral health service; will reassess if she is still interested at next visit. Assessment & Plan (08/12/2022 10:43 AM EDT): - continue bupropion 150mg at night to avoid daytime drowsiness - pt is also trying to quit smoking and losing weight - will refer patient to Behavioral Health Assessment & Plan (05/12/2022 5:24 PM EST): - continue bupropion 150mg at night to avoid daytime drowsiness - pt is also trying to quit smoking and losing weight Essential hypertension 09/06/2011 Assessment & Plan (06/27/2023 9:14 AM EDT): -Goal BP < 140/90 per JNC-8 and < 130/80 per ACC/AHA guideline (Treatment threshold >= 130/80). 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 -BP not at goal today -Continue working on lifestyle modifications -Continue current medications: Lisinopril 20mg and metoprolol 12.5mg bid -Follow up in 3 mo, sooner if any problem arises- BP controlled Assessment & Plan (08/12/2022 10:17 AM EDT): -Goal BP < 140/90 per JNC-8 and < 130/80 per ACC/AHA guideline (Treatment threshold >= ) -BP at goal today -Continue working on lifestyle modifications -Continue current medications: Lisinopril 20mg and metoprolol 25mg -Follow up in 3 mo, sooner if any problem arises- BP controlled Assessment & Plan (05/12/2022 5:23 PM EST): -Goal BP < 140/90 per JNC-8 and < 130/80 per ACC/AHA guideline (Treatment threshold >= ) -Continue working on lifestyle modifications -Continue current medications: Lisinopril 20mg and metoprolol 25mg -Follow up in 3 mo, sooner if any problem arises- BP controlled Lumbago 09/06/2011 Assessment & Plan (05/07/2022 10:54 AM EST): - likely spasm, continue heating pad, lidoderm patches - tizanidine at bedtime PRN short course - contact C if no improvement Neck pain 09/06/2011 Nicotine dependence 09/06/2011 Assessment & Plan (08/12/2022 10:44 AM EDT): Has cut-down since starting Wellbutrin -smokes 2 - 5 cigarettes a day depending on how anxious/stressed she is -continue smoking cessation Assessment & Plan (05/07/2022 10:53 AM EST): Has cut-down since starting Wellbutrin -smokes 2 - 5 cigarettes a day depending on how anxious/stressed she is -continue smoking cessation Resolved Problems Problem Noted Date Diagnosed Date Resolved Date Pure hypercholesterolemia 09/06/2011 Encounters Date Type Department Care Team Description 01/19/2025 10:30 AM EDT Office Visit [facility] [address] [place] [address] Dionne Hernadez MD Essential hypertension (Primary Dx); Dyslipidemia; Coronary artery disease involving [place] coronary artery of [place] heart without angina pectoris; Primary hypertension 01/19/2025 Travel 01/18/2025 Travel 01/18/2025 Telephone [facility] [address] [place] [address] Dionne Hernadez MD chart prep 01/11/2025 Patient Outreach [facility] [address] [place] [address] Dionne Hernadez MD Pre-visit Planning (SDOH Screening negative and Tobacco screening negative) 12/22/2024 Orders Only [facility] [address] [place] [address] Dionne Hernadez MD Essential hypertension (Primary Dx); Dyslipidemia; Coronary artery disease involving [place] coronary artery of [place] heart without angina pectoris; Gastroesophageal reflux disease, unspecified whether esophagitis present; Abdominal bloating; Screening for diabetes mellitus from Last 3 Months Immunizations Immunization Administration Dates Next Due Influenza injectable quadrivalent preservative f ree 12/28/2021 Pfizer Covid-19 Vaccine 12+ 04/12/2020 Pfizer Covid-19 Vaccine 12+ Bivalent 05/07/2022 Tdap 05/08/2015 Social History Tobacco Use Types Packs/Day Years Used Date Smoking Tobacco: Every Day Cigarettes Passive Smoke Exposure: Current Smokeless Tobacco: Never Tobacco Cessation:Ready to Q uit: Not Asked; Counseling Given: Not Answered Depression Answer Date Recorded Patient Health Questionnaire-9 [...] Recorded Patient Health Questionnaire-2 Score 2 06/26/2023 Internet Access Answer Date Recorded Internet Access Q1 Yes 01/11/2025 Internet Access Q2 Not on file 01/11/2025 Comments Unknown Sex and Gender Information Value Date Recorded Sex Assigned at Female 02/04/2022 10:15 AM EDT Legal Sex Female 10:15 AM EDT Gender Identity Female 02/04/2022 10:15 AM EDT Sexual Orientation Straight 02/04/2022 10 :15 AM EDT Last Filed Vital Signs Vital Sign Reading [...] Mass Index 37.87 01/19/2025 10:59 AM EDT Plan of Treatment Health Maintenance Due Date Last Done Comments CT Colonography 1966 FIT DNA/Cologuard 1966 FIT 1966 FOBT 1966 Sigmoidoscopy 1966 Alcohol/Substance Use Screening 1978 Hepatitis B Vaccines (1 of 3 - 19+ 3-dose series) 1985 Pneumococcal Vaccine: 50+ Years (1 of 2 - PCV) 1985 Zoster Vaccines (1 of 2) 2016 Depression Screening 06/25/2024 06/26/2023, 06/26/19 COVID-19 Vaccine ( season) 2024 05/07/2022, 05/31/2021, 05/03/2020, Additional history exists Influenza Vaccine (#1) 2024 12/28/2021 DTaP/Tdap/Td Vaccines (2 - Td or Tdap) 05/08/2025 05/08/2015 Mammogram 08/04/2025 08/05/2023, 03/0 10/2022, 06/11/2022, Additional history exists Pap Smear 08/12/2025 08/12/2022 SDOH Screening 01/11/2026 01/11/2025 Disability Screening 01/18/2026 01/18/2025 Tobacco Screening 01/19/2026 01/19/2025 Cervical Cancer Screening 08/13/2027 HPV/Cotest 08/13/2027 08/12/2022 Colonoscopy 08/03/2028 08/04/2023, 01/22/2018 Colorectal Cancer Screening 08/03/2028 Lipid Panel 01/19/2030 01/19/2025, 01/05, 06/26/2023, Additional history exists RSV Patients and Patients Aged 60 years or older (1 - 1-dose 75+ series) 2041 HIV Screening Completed 11/14/2020 Hepatitis C Screening Completed 11/14/2020 HIB Vaccines Aged Out No longer eligi ble based on patient's age to complete this topic HPV Vaccines Aged Out No longer eligi ble based on patient's age to complete this topic Hepatitis A Vaccines Aged Out No long er eligible based on patient's age to complete this topic IPV Vaccines Aged Out No longer eligi ble based on patient's age to complete this topic Meningococcal B Vaccine Aged Out No l onger eligible based on patient's age to complete this topic Meningococcal Vaccine Aged Out No roberto nicholas eligible based on patient's age to complete this topic RSV under 20 months Aged Out No longe r eligible based on patient's age to complete this topic Rotavirus Vaccines Aged Out No longer eligible based on patient's age to complete this topic Procedures Procedure Name Priority Date/Time Associated Diagnosis Comments LIPID PANEL, STANDARD Routine 01/19/2025 11:48 AM EDT Essential hypertension COMPREHENSIVE METABOLIC PANEL Routine 01/19/2025 11:48 AM EDT Essential hypertension ALBUMIN, RANDOM URINE W/CREATININE Routine 01/19/2025 11:48 AM EDT Essential hypertension LIPID PANEL WITH REFLEX TO DIRECT LDL Routine 01/19/2025 11:48 AM EDT Dyslipidemia HEMOGLOBIN A1C Routine 01/19/2025 11:48 AM EDT Screening for diabetes mellitus BI MAMMOGRAM SCREENING TOMOSYNTHESIS BILATERAL Routine 08/05/2023 9:25 AM EDT HM COLONOSCOPY Routine 08/04/2023 THINPREP IMAGING PAP AND HPV DNA REFLEX HPV 16,18 Routine 08/12/2022 10:36 AM EDT Encounter for well woman exam with routine gynecological exam ZZZ HISTORICAL HEPATITIS C AB W/REFL TO HCV RNA, QN, PCR Routine 11/14/2020 11:53 AM EDT HIV 1/2 ANTIGEN/ANTIBODY, FOURTH GENERATION W/RFL Routine 11/14/2020 11:53 AM EDT from Last 3 Months or Most Recently Relevant to Health Maintenance Results * Albumin, Random Urine W/Creatinine (01/19/2025 11:48 AM EDT) Creatinine, Urine 110.05 mg/dL [facility] Microalbumin Urine 26.0 mg/L [facility] Microalbum Creatinine Ratio Ur 23.6 <30 ug/mg cr [facility] Comment:Albumin/Creatinine R atio Reference Ranges: Normal: < 30 ug/mg creatinine Microalbuminuria: 30 - 300 ug/mg creatinineClinical Albuminuria: > 300 ug/mg creatinine Urine (Urine, Random) 01/19/2025 11:48 AM EDT 01/19/2025 12:59 PM EDT us Dionne Hernadez MD LAB URINE ORDERABLES Final Resul t Performing Organization Address [facility] de Phone Number [facility] [address] [place] [phone] * Hemoglobin A1c (01/19/2025 11:48 AM EDT) Hemoglobin A1c 5.9 <6.0 % [facility] Comment:Hemoglobin A1C Refer ence Range Adults: 4.8 - 6.0 % Non diabetic: < 6.0 % Goal: < 7.0 %Additional Action Suggested: > 8.0 %Note: Hemoglobin A1c results are invalid for patients with abnormal amounts of HbF. Blood transfusions may impact the HbA1c concentration in the patient sample. Estimated Average Glucose 123 mg/dL [facility] Comment:eAG = Estimated ave rage glucose which is %A1C expressed asaverage glucose, using the formula of the [id number] Glucose study (ADAG), Diabetes Care, Vol.31,#8,Nov. 2007 Blood Venous blood specimen / Unknown 01/19/2025 11:48 AM EDT 01/19/2025 1:07 PM EDT us Dionne Hernadez MD LAB BLOOD ORDERABLES Final Resul t Performing Organization Address [facility] de Phone Number [facility] [address] [place] [phone] * (ABNORMAL) Lipid Panel, Standard (01/19/2025 11:48 AM EDT) Triglycerides 126 <150 mg/dL [facility] Comment:Desirable Triglyceri de: less than 150 mg/dLBorderline High Triglyceride 150-199 mg/dLHigh Triglyceride: 200-499 mg/dLVery High Triglyceride: greater than or equal to 5OO mg/dL Cholesterol 141 <200 mg/dL [facility] Comment:Desirable Cholestero l: less than 200 mg/dLBorderline High Cholesterol: 200-239 mg/dLHigh Cholesterol: greater than 239 mg/dL LDL Cholesterol Calculated 82 <100 mg/dL [facility] Comment:Desirable LDL: less than 100 mg/dLNear Optimal/Above Optimal LDL: 110- 129 mg/dLBorderline High LDL: 130-159 mg/dLHigh LDL: 160-189 mg/dLVery High LDL: greater than or equal to 190 mg/dL HDL Cholesterol 34(L) >40 mg/dL [facility] Comment:Desirable HDL: great er than 40 mg/dL Note: This HDL assay may give artificially low results in patients with liver disease. 01/19/2025 11:4 8 AM EDT 01/19/2025 1:07 PM EDT us Generic External Data Provider LAB BLOOD ORDERAB LES Final Result [facility] [address] [place] [phone] * (ABNORMAL) Comprehensive Metabolic Panel (01/19/2025 11:48 AM EDT) Pathologist [facility] Sodium 140 135 - 145 mmol/L [facility] Potassium 4.2 3.3 - 5.1 mmol/L [facility] Chloride 107 96 - 108 mmol/L [facility] Carbon Dioxide 27 22 - 29 mmol/L [facility] Anion Gap 10(L) 12 - 20 [facility] Urea Nitrogen (BUN) 11 9 - 16 mg/dL [facility] Creatinine, Serum 0.94 0.5 - 1.4 mg/dL [facility] Estimated Glomerular Filt Rate >60 [facility] Comment:Chronic Kidney Disea se: Estimated GFR < 60 mL/min/1.14a4Eumiyn Kidney Disease: Estimated GFR < 15 mL/min/1.73m2 Glucose 106 60 - 115 mg/dL [facility] Calcium 9.7 8.4 - 10.2 mg/dL [facility] Bilirubin, Total 0.3 0.0 - 1.0 mg/dL [facility] Aspartate Amino Transferase 72(H) 5 - 31 U/L [facility] Alanine Aminotransferase 30 0 - 31 U/L [facility] Total Protein 7.8 6.5 - 8.0 g/dL [facility] Albumin Level 4.3 3.5 - 5.0 g/dL [facility] Alkaline Phosphatase 126(H) 39 - 117 U/L [facility] 01/19/2025 11:4 8 AM EDT 01/19/2025 1:07 PM EDT us Generic External Data Provider LAB BLOOD ORDERAB LES Final Result [facility] [address] [place] [phone] [phone] * BI Mammogram Screening Tomosynthesis Bilateral (08/05/2023 9:25 AM EDT) Anatomical Region Laterality Modality Breast Bilateral Mammography 08/05/2023 9:25 AM EDT Narrative 09/01/2023 11:22 AM EDT [facility] [address] [place] [address] [place] [address] Mammography Report Signed Patient: Pili Diaz MR#: [id number] : 1965 Acct:[id number] Age/Sex: 57 / F ADM Date: 08/05/23 Loc: TOMMY Attending Dr: Dionne Hernadez MD Ordering Physician: Dionne Hernadez MD Results: 1Negative Date of Service: 08/05/23 Follow Up: 1 Year From Orig inal Mammogram Procedure(s): MM tomosynthesis screening BI Accession Number(s): [id number] cc: Dionne Hernadez MD EXAMINATION: MM SCREENING DIGITAL BREAST TOMOSYNTHESIS, BILATERAL CLINICAL INFORMATION: Screening. Asymptomatic. COMPARISON: Mammography: This study is compared with prior exams dating back to 2010. TECHNIQUE: Digital breast tomosynthesis is performed in both the craniocaudal and mediolateral oblique views along with computer-aided detection (CAD). Synthesized 2D images are generated from the tomosynthesis. FINDINGS: The breasts are almost entirely fatty (ACR BI-RADS breast composition Category a). There are no significant masses, abnormal calcifications, or other abnormalities. MM/MM tomosynthesis screening BI IMPRESSION: No mammographic evidence of malignancy. ASSESSMENT: BI-RADS BI-RADS 1 - Negative RECOMMENDATION: Routine annual mammography screening. 1 year F/U This examination should not preclude the clinical evaluation of a suspicious palpable abnormality. This patient's information was entered into a reminder system with a target due date for their next mammogram. Dictated By: Dora Alonzo MD Signed By: <Electronically signed by Dora Alonzo MD in OV> 09/01/23 1118 DD/ 0925 TD/TT: Poultry Farmworker: Procedure Note Donotuseinterpreter, Image - 09/01/2023 Steffanie [facility] [address] [place], [place] [address] Mammography Report Signed Patient: Louisa Diaz#: [id number] : 1965Acct:[id number] Age/Sex: 57 / FADM Date: 08/05/23 Loc: TOMMY Attending Dr: Dionne Hernadez MD Ordering Physician: Dionne Hernadez MDResults: 1Negative Date of Service: 08/05/23Follow Up: 1 Year From Orig inal Mammogram Procedure(s): MM tomosynthesis screening BI Accession Number(s): [id number] cc: Dionne Hernadez MD EXAMINATION: MM SCREENING DIGITAL BREAST TOMOSYNTHESIS, BILATERAL CLINICAL INFORMATION: Screening. Asymptomatic. COMPARISON: Mammography: This study is compared with prior exams dating back to 2010. TECHNIQUE: Digital breast tomosynthesis is performed in both the craniocaudal and mediolateral oblique views along with computer-aided detection (CAD). Synthesized 2D images are generated from the tomosynthesis. FINDINGS: The breasts are almost entirely fatty (ACR BI-RADS breast composition Category a). There are no significant masses, abnormal calcifications, or other abnormalities. MM/MM tomosynthesis screening BI IMPRESSION: No mammographic evidence of malignancy. ASSESSMENT: BI-RADS BI-RADS 1 - Negative RECOMMENDATION: Routine annual mammography screening. 1 year F/U This examination should not preclude the clinical evaluation of a suspicious palpable abnormality. This patient's information was entered into a reminder system with a target due date for their next mammogram. Dictated By: Dora Alonzo MD Signed By: <Electronically signed by Dora Alonzo MD in OV> 09/01/23 1118 DD/ 09 TD/TT: Poultry Farmworker: Dionne Hernadez MD IMG BI PROCEDURES Final Result * Colonoscopy (08/04/2023) Colonoscopy Normal Normal Historical Provider [facility] Final Result * ThinPrep Imaging Pap and HPV DNA reflex HPV 16,18 (08/12/2022 10:36 AM EDT) Clinical Information: None given [facility] LMP: NONE GIVEN [employer] [facility] Prev. PAP: NONE GIVEN [employer] [facility] Prev. BX: NONE GIVEN [employer] [facility] [facility] SOURCE: None given [employer] [facility] Statement Of Adequacy: [facility] Comment: Satisfactory for evaluation. Endocervical/transformation zone component present. Age and/or menstrual status not provided Interpretation/ Result: Negative for intraepithelial lesion or malignancy. [facility] COMMENT: This Pap test has been evaluated with computer assisted technology. [employer] t: [facility] Comment: YP, CT(ASCP) CT screening location: [facility] [place] [address] (Always Message) [facility] Comment: EXPLANATORY NOTE: The Pap is a screening test for cervical cancer. It is not a diagnostic test and is subject to false negative and false positive results. It is most reliable when a satisfactory sample, regularly obtained, is submitted with relevant clinical findings and history, and when the Pap result is evaluated along with historic and current clinical information. HPV DNA, High Risk, Cervical Not Detected NOT DETECTED [facility] Comment: Not Detected High Risk HPV types (16,18,31,33,35,39,45,51,52, 56,58,59,66,68) were not detected. Other HPV types which cause anogenital lesions may be present. The significance of the other types of HPV in malignant processes has not been established. Methodology: Real Time PCR Pap Vial 08/12/2022 10:3 6 AM EDT 08/13/2022 4:39 AM EDT us Dionne Hernadez MD LAB CYTOLOGY ORDERABLES Final Re sult [address], [place] [address] [facility] [address] [place] [phone] [facility]/Ng [facility] [address] [place] [phone] * HEPATITIS C AB W/REFL TO HCV RNA, QN, PCR (11/14/2020 11:53 AM EDT) HEPATITIS C ANTIBODY NON-REACT [facility] NON-REACT [facility] INDEX 0.01 <1.00 [facility] Comment: HCV antibody was non-reactive. There is no laboratory evidence of HCV infection. In most cases, no further action is required. However, if recent HCV exposure is suspected, a test for HCV RNA (test code 98387) is suggested. For additional information please refer to http://education.[employer]/faq/IXQ48n8 (This link is being provided for informational/ educational purposes only.) 11/14/2020 11:5 3 AM EDT Analisa Saleem MD HISTORICAL/NON ORDERABLE LABS Final Result Performing Organization Address [facility] de Phone Number [facility] [address] * HIV 1/2 ANTIGEN/ANTIBODY,FOURTH GENERATION W/RFL (11/14/2020 11:53 AM EDT) HIV-1/2 ANTIGEN AND ANTIBODIES, 4TH GENERATION W/ REFLEX NON-REACT UMM NON-REACT UMM [facility] Comment: HIV-1 antigen and HIV-1/HIV-2 antibodies were not detected. There is no laboratory evidence of HIV infection. PLEASE NOTE: This information has been disclosed to you from records whose confidentiality may be protected by state law. If your state requires such protection, then the state law prohibits you from making any further disclosure of the information without the specific written consent of the person to whom it pertains, or as otherwise permitted by law. A general authorization for the release of medical or other information is NOT sufficient for this purpose. For additional information please refer to http://education.[employer]/faq/GQN104 (This link is being provided for informational/ educational purposes only.) The performance of this assay has not been clinically validated in patients less than 2 years old. 11/14/2020 11:5 3 AM EDT Analisa Saleem MD LAB BLOOD ORDERABLES Final Re sult Performing Organization Address [facility] de Phone Number [facility] [address] from Last 3 Months or Most Recently Relevant to Health Maintenance Insurance MEDICARE [facility] STANDARD Care Teams Senior [employer] Engineer Relationship Specialty Start Date End Date Dionne Hernadez MD [address] [place] [id number] PCP - General Family Medicine 12/28/21
--- OUTSIDE RECORDS SUMMARY | 2025-01-19 14:50 | XMS_ITS | Encounter Summary ---
Author Organization [employer] Address [address] [place] [address] [address] [place] [address] Care Team Providers Care Training Professional Name Role Phone Dionne Hernadez MD Primary Care Provider [phone] Encounter Details Date Type Department Care Team (Late st Contact Info) Description 04/26/2022 Orders Only [facility] [address] [place] [address] Codie Fisher LPN Social History Tobacco Use Types Packs/Day Years Used Date Smoking Tobacco: Never Assessed Comments Unknown Sex and Gender Information Value Date Recorded Sex Assigned at Female 02/04/2022 10:15 AM EDT Legal Sex Female 10:15 AM EDT Gender Identity Female 02/04/2022 10:15 AM EDT Sexual Orientation Straight 02/04/2022 10 :15 AM EDT documented as of this encounter Plan of Treatment Not on file documented as of this encounter Visit Diagnoses Not on filedocumented in this encounter Care Teams Training Professional Relationship Specialty Start Date End Date Dionne Hernadez MD [address] [place] [address] PCP - General Family Medicine 12/28/21 documented as of this encounter
[2025-01-19 14:51] LABS: Reflex LDLD? No
--- OUTSIDE RECORDS SUMMARY | 2025-01-19 14:51 | XMS_ITS | Encounter Summary ---
Author Organization [employer] Address [address] [facility] [address] [place] [address] Care Team Providers Care Pilot Plant Technician Name Role Phone Dionne Hernadez MD Primary Care Provider [phone] Encounter Details Date Type Department Care Team (Latest Contact Info) Description 01/18/2025 Travel Social History Tobacco Use Types Packs/Day [...] documented as of this encounter Care Teams Pilot Plant Technician Relationship Specialty Start Date End Date Dionne Hernadez MD [address] [place] [address] PCP - General Family Medicine 12/28/21 documented as of this encounter
== END 2025-01-19 11:39 | disposition home or self-care (01) ==
LOC: HO.HHCL 11:38
PROVIDERS: Nurse Practitioner Family; PCP Family Medicine; Visit Provider Family Medicine
DX: Z13.1 Encounter for screening for diabetes mellitus (principal); I25.10 Atherosclerotic heart disease of native coronary artery without angina pectoris; I10 Essential (primary) hypertension; E78.5 Hyperlipidemia, unspecified
CPT/HCPCS: 36415; 80053; 80061; 82043; 82570; 83036